=== PATIENT | female | born 1990 | race African-American/Black ===

== ENCOUNTER 2019-02-19 16:49 | Emergency (ER) | payer SELFPAY ==
[2019-02-19] MEDS ORDERED: KETOROLAC 30 MG/ML INJ ONE (18:17)
--- NOTE | 2019-02-19 18:45 | RAD REPORT ---
EXAM DESCRIPTION: CT - Stone Protocol - 02/19/2019 6:26 pm CLINICAL HISTORY: Abdominal pain. COMPARISON: 2016 TECHNIQUE: Computed axial tomography of the abdomen pelvis was obtained without oral or IV contrast. Lack of IV and oral contrast limits evaluation of solid organs, bowel, and vessels. Coronal reformat becky images were obtained and reviewed. All CT scans are performed using dose optimization technique as appropriate and may include automated exposure control or mA/KV adjustment according to patient size. FINDINGS: Staghorn calculi left kidney. A 21 millimeter calculus is present within left renal pelvis . Mild left hydronephrosis. A right renal calculus is not seen. A ureteral calculus is not visualized . No bladder calculus The liver, spleen, pancreas and adrenals appear grossly normal There is no evidence of diverticulitis. The appendix appears normal IMPRESSION: A 21 millimeter calculus within the left renal pelvis probably results in an intermitten t partial obstruction. Mild left hydronephrosis is seen
--- NOTE | 2019-02-19 18:54 | ER ---
Nurse's Notes [facility] Name: Melida Ravi Age: 28 yrs Sex: Female : 1990 Arrival Date: 02/19/2019 Time: 16:51 Bed 20 Private MD: Diagnosis: Calculus of kidney;Urinary tract infection, site not specified Presentation: 02/19 17:33 Presenting complaint: Patient states: the lower part of my back is hurting, it started tw2 2 days ago, i dont think i injured it but it hurts. Transition of care: patient was not received from another setting of care. Onset of symptoms was February 19, 2019. Risk Assessment: Do you want to hurt yourself or someone else? Patient reports no desire to harm self or others. Initial Sepsis Screen: Does the patient meet any 2 criteria? No. Patient's initial sepsis screen is negative. Does the patient have a suspected source of infection? No. Patient's initial sepsis screen is negative. Care prior to arrival: None. 17:33 Method Of Arrival: Ambulatory tw2 17:33 Acuity: FERNANDO 3 tw2 17:33 Presenting complaint: Patient states: i am really here to make sure it is not kidney tw2 stones or something with my kidneys. Triage Assessment: 17:35 General: Appears in no apparent distress. Behavior is calm, cooperative, appropriate tw2 for age. Pain: Complains of pain in lumbar area, left low back and right low back. 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 - Social history:: Smoking status: . - Ebola Screening: : Patient denies travel to an Ebola-affected area in the 21 days before illness onset. Screenin:10 Abuse screen: Denies threats or abuse. Nutritional screening: No deficits noted. em Tuberculosis screening: No symptoms or risk factors identified. Fall Risk None identified. Assessment: 18:10 General: Appears in no apparent distress. comfortable, Behavior is calm, cooperative, em Denies fever. Pain: Complains of pain in lumbar area Pain currently is 8 out of 10 on a pain scale. Neuro: Level of Consciousness is awake, alert, obeys commands, Oriented to person, place, time, situation, Appropriate for age. Cardiovascular: Capillary refill < 3 seconds Patient's skin is warm and dry. Respiratory: Airway is patent Respiratory effort is even, unlabored, Respiratory pattern is regular, symmetrical. : Denies burning with urination. Derm: Skin is intact, is healthy with good turgor, Skin is pink, warm \T\ dry. Musculoskeletal: Capillary refill < 3 seconds, Range of motion: intact in all extremities. 18:10 Reassessment: I agree with assessment completed by Adarsh Lara LVN. aa5 Vital Signs: 17:34 BP 126 / 67; Pulse 74; Resp 18; Temp 98.8(TE); Pulse Ox 97% on R/A; Weight 63.5 kg (R); tw2 Height 5 ft. 9 in. (175.26 cm); Pain 9/10; 19:09 BP 113 / 79; Pulse 58; Resp 18; Pulse Ox 99% on R/A; wh 17:34 Body Mass Index 20.67 (63.50 kg, 175.26 cm) tw2 ED Course: 16:51 Patient arrived in ED. as 17:34 Triage completed. tw2 17:36 Arm band placed on. tw2 18:01 Adarsh Lara LVN is Primary Nurse. em 18:01 Lilia Ramey FNP-C is [facility]. kb 18:01 Jevon Graff MD is Attending Physician. kb 18:10 Patient has correct armband on for positive identification. Placed in gown. Bed in low em position. Call light in reach. Adult w/ patient. 18:29 CT Stone Protocol In Process Unspecified. EDMS 19:07 No provider procedures requiring assistance completed. Patient did not have IV access wh during this emergency room visit. Administered Medications: 18:18 Drug: TORadol 30 mg Route: IM; Site: left deltoid; em 18:59 Follow up: Response: No adverse reaction; Pain is decreased wh 18:59 Drug: Augmentin 875 mg Route: PO; wh 19:08 Follow up: Response: No adverse reaction wh Outcome: 18:53 Discharge ordered by . kb 19:07 Discharged to home ambulatory. 19:07 Condition: stable 19:07 Discharge instructions given to patient, Instructed on discharge instructions, follow up and referral plans. medication usage, POC Demonstrated understanding of instructions, follow-up care, medications, POC Prescriptions given X 2. 19:08 Patient left the ED. Addendum: 02/21/2019 08:46 Addendum: Culture Results: Positive urine culture. No further action required. Bacteria i w sensitive to prescribed antibiotic. Signatures: Dispatcher [employer] EDMS Lilia Ramey, SPOT REMOVER-C SPOT REMOVER-CkAdarsh Varela, RN RN Sarah Concepcion as Luz Bellamy RN RN iw Janet Barber, YVON RN aa5 Ginette Santiago RN RN tw2 Luana Saxena Corrections: (The following items were deleted from the chart) 02/19 17:36 17:33 Acuity: FERNANDO 4 tw2 tw2
--- NOTE | 2019-02-19 18:55 | EDPHYS ---
Physician Documentation [facility] Name: Melida Ravi Age: 28 yrs Sex: Female : 1990 Arrival Date: 02/19/2019 Time: 16:51 Bed 20 Private MD: ED Physician Jevon Graff HPI: 02/19 18:47 This 28 yrs old Black Female presents to ER via Ambulatory with complaints of Low Back kb Pain. 18:47 The patient presents with pain that is acute, with no known mechanism of injury. The kb symptoms are located in the low back. The pain does not radiate. The problem was sustained from unknown cause. Onset: The symptoms/episode began/occurred 3 day(s) ago. Modifying factors: The patient symptoms are alleviated by nothing, the patient symptoms are aggravated by any movement. Associated signs and symptoms: The patient has no apparent associated signs or symptoms. Severity of symptoms: At their worst the symptoms were moderate, in the emergency department the symptoms are unchanged. The patient has experienced a previous episode. The patient has not recently seen a physician. Pt reports low back pain that started 3 days ago. Came in today because it feels similar to pain she had when she had a kidney stone. Denies urinary symptoms. 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 - Social history:: Smoking status: . - Ebola Screening: : Patient denies travel to an Ebola-affected area in the 21 days before illness onset. ROS: 18:47 Constitutional: Negative for fever, chills, and weight loss, Neck: Negative for injury, kb pain, and swelling, Cardiovascular: Negative for chest pain, palpitations, and edema, Respiratory: Negative for shortness of breath, cough, wheezing, and pleuritic chest pain, Abdomen/GI: Negative for abdominal pain, nausea, vomiting, diarrhea, and constipation, : Negative for injury, bleeding, discharge, and swelling, MS/Extremity: Negative for injury and deformity, Skin: Negative for injury, rash, and discoloration, Neuro: Negative for headache, weakness, numbness, tingling, and seizure. 18:47 Back: Positive for pain at rest, of the low back area. Exam: 18:47 Constitutional: This is a well developed, well nourished patient who is awake, alert, kb and in no acute distress. Head/Face: Normocephalic, atraumatic. ENT: Nares patent. No nasal discharge, no septal abnormalities noted. Tympanic membranes are normal and external auditory canals are clear. Oropharynx with no redness, swelling, or masses, exudates, or evidence of obstruction, uvula midline. Mucous membranes moist. Neck: Trachea midline, no thyromegaly or masses palpated, and no cervical lymphadenopathy. Supple, full range of motion without nuchal rigidity, or vertebral point tenderness. No Meningismus. Chest/axilla: Normal chest wall appearance and motion. Nontender with no deformity. No lesions are appreciated. Cardiovascular: Regular rate and rhythm with a normal S1 and S2. No gallops, murmurs, or rubs. Normal PMI, no JVD. No pulse deficits. Respiratory: Lungs have equal breath sounds bilaterally, clear to auscultation and percussion. No rales, rhonchi or wheezes noted. No increased work of breathing, no retractions or nasal flaring. Abdomen/GI: Soft, non-tender, with normal bowel sounds. No distension or tympany. No guarding or rebound. No evidence of tenderness throughout. Skin: Warm, dry with normal turgor. Normal color with no rashes, no lesions, and no evidence of cellulitis. MS/ Extremity: Pulses equal, no cyanosis. Neurovascular intact. Full, normal range of motion. Neuro: Awake and alert, GCS 15, oriented to person, place, time, and situation. Cranial nerves II-XII grossly intact. Motor strength 5/5 in all extremities. Sensory grossly intact. Cerebellar exam normal. Normal gait. 18:47 Back: pain, that is moderate, of the low back area. Vital Signs: 17:34 BP 126 / 67; Pulse 74; Resp 18; Temp 98.8(TE); Pulse Ox 97% on R/A; Weight 63.5 kg (R); tw2 Height 5 ft. 9 in. (175.26 cm); Pain 9/10; 19:09 BP 113 / 79; Pulse 58; Resp 18; Pulse Ox 99% on R/A; wh 17:34 Body Mass Index 20.67 (63.50 kg, 175.26 cm) tw2 MDM: 18:01 Patient medically screened. kb 18:47 Data reviewed: vital signs, nurses notes. Data interpreted: Pulse oximetry: on room air kb is 97 %. Interpretation: normal. 18:53 Counseling: I had a detailed discussion with the patient and/or guardian regarding: the kb historical points, exam findings, and any diagnostic results supporting the discharge/admit diagnosis, lab results, radiology results, the need for outpatient follow up, a urologist, to return to the emergency department if symptoms worsen or persist or if there are any questions or concerns that arise at home. 02/19 18:14 Order name: Urine Microscopic Only 02/19 18:14 Order name: Urine --Ancillary (enter results) 02/19 18:14 Order name: CT Stone Protocol; Complete Time: 18:52 kb 02/19 18:14 Order name: Urine Dipstick--Ancillary (enter results) 02/19 17:44 Order name: Urine Dipstick-Ancillary (obtain specimen); Complete Time: 18:18 kb Administered Medications: 18:18 Drug: TORadol 30 mg Route: IM; Site: left deltoid; em 18:59 Follow up: Response: No adverse reaction; Pain is decreased 18:59 Drug: Augmentin 875 mg Route: PO; wh 19:08 Follow up: Response: No adverse reaction Disposition: 02/20 07:05 Co-signature as Attending Physician, Jevon Graff MD I agree with the assessment and theresa plan of care. Disposition: 02/19/19 18:53 Discharged to Home. Impression: Calculus of kidney, Urinary tract infection, site not specified. - Condition is Stable. - Discharge Instructions: Kidney Stones, [id number], Urinary Tract Infection, Adult, [id number]. - Prescriptions for Augmentin 875- 125 mg Oral Tablet - take 1 tablet by ORAL route every 12 hours for 10 days; 20 tablet. Diclofenac Sodium 75 mg Oral Tablet, Delayed Release (E.C.) - take 1 tablet by ORAL route 2 times per day As needed; 30 tablet. - Medication Reconciliation Form, Thank You Letter, Antibiotic Education, Prescription Opioid Use form. - Follow up: Emergency Department; When: As needed; Reason: Worsening of condition. Follow up: Private Physician; When: 2 - 3 days; Reason: Recheck today's complaints, Continuance of care, Re-evaluation by your physician. Signatures: Dispatcher [employer] EDLilia Dupont, QUALIFICATIONS EXAMINER-C QUALIFICATIONS EXAMINER-Nakulb Jevon Graff MD MD cha Munoz, Edgar, RN RN Ginette Santiago RN RN [facility] Luana Saxena Corrections: (The following items were deleted from the chart) 02/19 19:08 18:53 02/19/2019 18:53 Discharged to Home. Impression: Calculus of kidney; Urinary wh tract infection, site not specified. Condition is Stable. Forms are Medication Reconciliation Form, Thank You Letter, Antibiotic Education, Prescription Opioid Use. Follow up: Emergency Department; When: As needed; Reason: Worsening of condition. Follow up: Private Physician; When: 2 - 3 days; Reason: Recheck today's complaints, Continuance of care, Re-evaluation by your physician. kb
[2019-02-19] MEDS ORDERED: AMOX/K CLAV 875 MG TAB ONE (19:00)
[2019-02-19 19:15] VITALS: TEMP 98.8
[2019-02-19 19:16] VITALS: BP 113/79; O2SAT 99
[2019-02-19 19:23] LABS: Urine Bacteria >50 /HPF (<20); Urine Culture Reflex Order REFLEXED; Urine Mucus 3+ /HPF (NONE SEEN); Urine RBC >50 /HPF (NONE SEEN)
[2019-02-19 19:23] LABS: Urine Blood 2+ (NEG); Urine Glucose NEGATIVE (NEG); Urine Protein 2+ (NEG); Urine Specific Gravity 1.025 (1.005-1.030)
== END 2019-02-19 19:08 | disposition home or self-care (01) ==
LOC: ER 16:49
DX: N39.0 Urinary tract infection, site not specified (principal); N20.0 Calculus of kidney
CPT/HCPCS: 74176; 76377; 81003; 81015; 81025; 87077; 87086; 87088; 87186; 96372; 99283

== ENCOUNTER 2020-12-15 11:00 | Emergency (ER) | payer SELFPAY ==
--- NOTE | 2020-12-15 11:42 | EDPHYS ---
Physician Documentation [facility] Name: Melida Ravi Age: 30 yrs Sex: Female : 1990 Arrival Date: 12/15/2020 Time: 11:02 Bed Waiting Private MD: GURMEET Physician Jevon Graff HPI: 12/15 11:47 This 30 yrs old Black Female presents to ER via Ambulatory with complaints of Rash. kb 11:47 The patient's rash thought to be caused by an unknown cause. The rash is located on the kb right clavicle and right trapezius and right lateral aspect of neck and right posterior aspect of neck. The rash can be described as erythematous. Onset: The symptoms/episode began/occurred 3 week(s) ago. Associated signs and symptoms: Pertinent positives: itching. Severity of symptoms: At their worst the symptoms were moderate in the emergency department the symptoms are unchanged. Treatment given at home: OTC lotion/cream. The patient has not experienced similar symptoms in the past. The patient has not recently seen a physician. Pt reports rash that started 3 weeks ago on right side of neck. States it looked like ringworm so she was using ringworm cream on it. States it was getting better, but she forgot to use it one day and the rash spread around neck, back and chest. Reports itching. . 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 - Social history:: Smoking status: Patient denies any tobacco usage or history of. ROS: 11:44 Constitutional: Negative for fever, chills, and weight loss. kb 11:44 Skin: Positive for rash, of the right trapezius, right clavicle, right posterior aspect of neck and right lateral aspect of neck. 11:46 All other systems are negative. kb Exam: 11:47 Constitutional: This is a well developed, well nourished patient who is awake, alert, kb and in no acute distress. Head/Face: Normocephalic, atraumatic. ENT: Moist Mucous membranes Respiratory: Respirations even and unlabored. No increased work of breathing, no retractions or nasal flaring. MS/ Extremity: Pulses equal, no cyanosis. Neurovascular intact. Full, normal range of motion. Neuro: Awake and alert, GCS 15, oriented to person, place, time, and situation. Moves all extremities. Normal gait. Psych: Awake, alert, with orientation to person, place and time. Behavior, mood, and affect are within normal limits. 11:47 Skin: consistent with contact dermatitis, ringworm, on the right clavicle and right trapezius and right lateral aspect of neck and right posterior aspect of neck. Vital Signs: 11:39 BP 103 / 77; Pulse 70; Resp 16; Temp 98.4; Pulse Ox 100% ; Weight 71.21 kg; Height 5 vg1 ft. 9 in. (175.26 cm); Pain 0/10; 11:39 Body Mass Index 23.18 (71.21 kg, 175.26 cm) vg1 MDM: 11:42 Patient medically screened. kb 11:43 Data reviewed: vital signs, nurses notes. Data interpreted: Pulse oximetry: on room air kb is 100 %. Interpretation: normal. Counseling: I had a detailed discussion with the patient and/or guardian regarding: the historical points, exam findings, and any diagnostic results supporting the discharge/admit diagnosis, the need for outpatient follow up, a lead ruby on rails developer, to return to the emergency department if symptoms worsen or persist or if there are any questions or concerns that arise at home. 11:50 ED course: Some areas of rash appear to be ringworm, other areas resemble contact kb dermatitis. Pt educated to continue ringworm otc treatment and use steroids as prescribed.. Administered Medications: No medications were administered Disposition: 12/16 11:34 Co-signature as Attending Physician, Jevon Graff MD I agree with the assessment and thersea plan of care. Disposition Summary: 12/15/20 11:42 Discharge Ordered Location: Home kb Condition: Stable kb Diagnosis - Rash and other nonspecific skin eruption kb Followup: kb - With: Emergency Department - When: As needed - Reason: Worsening of condition Followup: kb - With: Private Physician - When: 2 - 3 days - Reason: Recheck today's complaints, Continuance of care, Re-evaluation by your physician Discharge Instructions: - Discharge Summary Sheet kb - Body Ringworm kb - Contact Dermatitis, [id number] kb Forms: - Medication Reconciliation Form kb - Thank You Letter kb - Antibiotic Education kb - Prescription Opioid Use kb Prescriptions: - Prednisone 20 mg Oral Tablet - take 1 tablet by ORAL route once daily for 5 days; 5 tablet; Refills: 0, kb Product Selection Permitted Signatures: Lilia Ramey, HANNAHC FELECIA-Jevon Aldana MD MD cha Garcia, Victoria RN RN vg1 Corrections: (The following items were deleted from the chart) 12/15 11:43 11:43 PSHx: None; vg1 vg1
--- NOTE | 2020-12-15 11:48 | ER ---
Nurse's Notes [facility] Name: Melida Ravi Age: 30 yrs Sex: Female : 1990 Arrival Date: 12/15/2020 Time: 11:02 Bed Waiting Private MD: Diagnosis: Rash and other nonspecific skin eruption Presentation: 12/15 11:39 Chief complaint: Patient states: Noticed red spots on back of neck about 2-3 weeks ago. vg1 Was applying a topical ointment and then noticed that it was spreading to back and chest. States its itchy. Denies pain, changing soaps/lotions, cough, sore throat. Coronavirus screen: Vaccine status: Patient reports being unvaccinated. Client denies travel out of the [place] in the last 14 days. Ebola Screen: Patient negative for fever greater than or equal to 101.5 degrees Fahrenheit, and additional compatible Ebola Virus Disease symptoms. Initial Sepsis Screen: Does the patient meet any 2 criteria? No. Patient's initial sepsis screen is negative. Does the patient have a suspected source of infection? No. Patient's initial sepsis screen is negative. Risk Assessment: Do you want to hurt yourself or someone else? Patient reports no desire to harm self or others. Onset of symptoms was November 24, 2020. 11:39 Method Of Arrival: Ambulatory [facility] 11:39 Acuity: FERNANDO 4 vg1 Triage Assessment: 11:43 General: Appears in no apparent distress. uncomfortable, Behavior is calm, cooperative. vg1 Pain: Denies pain. Derm: Reports itching. 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 - Social history:: Smoking status: Patient denies any tobacco usage or history of. Screenin:45 Abuse screen: Denies threats or abuse. Nutritional screening: No deficits noted. vg1 Tuberculosis screening: No symptoms or risk factors identified. Fall Risk None identified. Vital Signs: 11:39 BP 103 / 77; Pulse 70; Resp 16; Temp 98.4; Pulse Ox 100% ; Weight 71.21 kg; Height 5 vg1 ft. 9 in. (175.26 cm); Pain 0/10; 11:39 Body Mass Index 23.18 (71.21 kg, 175.26 cm) vg1 ED Course: 11:02 Patient arrived in ED. ds1 11:29 Lilia Ramey FNP-C is [facility]. kb 11:29 Jevon Graff MD is Attending Physician. kb 11:43 Triage completed. vg1 11:43 Arm band placed on. vg1 11:45 Patient has correct armband on for positive identification. vg1 11:45 No provider procedures requiring assistance completed. Patient did not have IV access vg1 during this emergency room visit. Administered Medications: No medications were administered Outcome: 11:42 Discharge ordered by . kb 11:45 Discharged to home ambulatory. vg1 11:45 Condition: stable 11:45 Discharge instructions given to patient, Instructed on discharge instructions, follow up and referral plans. medication usage, Demonstrated understanding of instructions, follow-up care, medications, Prescriptions given X 1. 11:48 Patient left the ED. vg1 Signatures: Lilia Ramey FNP-C FNP-Ckb Sanford, Demi ds1 Liz Ardon, RN RN vg1 Corrections: (The following items were deleted from the chart) 11:43 11:43 PSHx: None; vg1 vg1
[2020-12-15 12:10] VITALS: BP 103/77; TEMP 98.4; O2SAT 100
== END 2020-12-15 11:48 | disposition home or self-care (01) ==
LOC: ER 11:00
DX: R21 Rash and other nonspecific skin eruption (principal)
CPT/HCPCS: 99282

== ENCOUNTER 2021-03-14 17:39 | Emergency (ER) | payer SELFPAY ==
[2021-03-14] MEDS ORDERED: MORPHINE 4 MG/ML SYR ONE (20:25)
[2021-03-14] MEDS ORDERED: ONDANSETRON 4 MG/2 ML VIAL ONE (20:26)
[2021-03-14 20:47] LABS: Urine Appearance TURBID (Clear); Urine Bilirubin NEGATIVE (Negative); Urine Blood 3+ (Negative); Urine Color YELLOW (Yellow); Urine Glucose NEGATIVE (Negative); Urine Protein 2+ (Negative); Urine Specific Gravity 1.015 (1.005-1.030); Urine pH 6.5 (5.0-7.0)
[2021-03-14 20:50] LABS: Urine Microscopic Reflex ORDER UMIC
[2021-03-14 20:54] LABS: Absolute Lymphocytes (CBC) 1.5 K/uL (0.7-4.9); Hematocrit 38.1 % (36.0-45.0); Lymphocytes % 20.5 % (15.3-44.8); MPV 7.4 fL (7.6-11.3); RBC Red Blood Cell Count 4.35 M/uL (3.86-4.86)
[2021-03-14 20:58] LABS: Albumin 3.4 g/dL (3.4-5.0); Potassium 3.7 mmol/L (3.5-5.1)
[2021-03-14 20:59] LABS: Urine Bacteria LOADED /HPF (<20); Urine RBC TNTC /HPF (NONE SEEN)
[2021-03-14 21:00] LABS: Urine Mucus 2+ /HPF (NONE SEEN)
[2021-03-14 21:03] LABS: Bilirubin Direct 0.1 mg/dL (0-0.2); Bilirubin Total 0.4 mg/dL (0.2-1.0); Protein, Total 6.9 g/dL (6.4-8.2)
--- NOTE | 2021-03-14 21:44 | RAD REPORT ---
EXAM DESCRIPTION: CT - Abdomen Pelvis W Contrast - 03/14/2021 9:25 pm CLINICAL HISTORY: Abdominal pain COMPARISON: 2013 TECHNIQUE: Computed axial tomography of the abdomen pelvis was obtained. 100 cc Isovue-300 was admin istered intravenously. Oral contrast was not requested which limits evaluation of bowel. All CT scans are performed using dose optimization technique as appropriate and may include automated exposure control or mA/KV adjustment according to patient size. FINDINGS: The left kidney is enlarged. 3.7 centimeter calculus left renal pelvis. The calices are ma rkedly dilated some containing calculi. Delayed concentration of contrast within the left kidney. Str anding within the peripelvic and left ureteral fat. This is compatible with xanthogranulomatous pyelo nephritis. Liver, spleen, pancreas, adrenals and right kidney unremarkable. There is no evidence of diverticulitis. Normal appendix IMPRESSION: Left xanthogranulomatous pyelonephritis
--- NOTE | 2021-03-14 22:43 | EDPHYS ---
Physician Documentation [facility] Name: Melida Ravi Age: 30 yrs Sex: Female : 1990 Arrival Date: 03/14/2021 Time: 17:41 Bed 11 Private MD: ED Physician Nick Posadas HPI: 03/14 20:15 This 30 yrs old Black Female presents to ER via Ambulatory with complaints of Back Pain.jmm 20:15 The patient presents with pain that is acute. Onset: The symptoms/episode jmm began/occurred gradually, 1 week(s) ago. The pain does not radiate. Associated signs and symptoms: Pertinent negatives: abdominal pain, dysuria, fever, incontinence, nausea, numbness, tingling, urinary retention, vomiting. Modifying factors: The patient symptoms are alleviated by nothing, the patient symptoms are aggravated by any movement. The patient has experienced similar episodes in the past, a few times. 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 - Social history:: Smoking status: Patient denies any tobacco usage or history of. Patient/guardian denies using alcohol. ROS: 20:15 Constitutional: Negative for fever, chills, and weight loss, Cardiovascular: Negative jmm for chest pain, palpitations, and edema, Respiratory: Negative for shortness of breath, cough, wheezing, and pleuritic chest pain. 20:15 Abdomen/GI: Positive for 20:15 Back: Positive for pain with movement. 20:15 All other systems are negative. Exam: 20:15 Constitutional: This is a well developed, well nourished patient who is awake, alert, jmm and in no acute distress. Head/Face: atraumatic. Eyes: EOMI, no conjunctival erythema appreciated ENT: Moist Mucus Membranes Neck: Trachea midline, Supple Chest/axilla: Normal chest wall appearance and motion. Cardiovascular: Regular rate and rhythm. No edema appreciated Respiratory: Normal respirations, no respiratory distress appreciated Abdomen/GI: Non distended, soft 20:15 Skin: General appearance color normal MS/ Extremity: Moves all extremities, no obvious deformities appreciated, no edema noted to the lower extremities Neuro: Awake and alert Psych: Behavior is normal, Mood is normal, Patient is cooperative and pleasant 20:15 Back: CVA tenderness, that is moderate, is noted bilaterally. Vital Signs: 18:16 BP 106 / 82; Pulse 95; Resp 16; Temp 98.4; Pulse Ox 99% ; Height 5 ft. 9 in. (175.26 vg1 cm); Pain 10/10; 20:42 BP 115 / 75; Pulse 73; Resp 16 S; Temp 96.7(O); Pulse Ox 99% on R/A; bb 03/15 00:51 BP 104 / 67; Pulse 67; Resp 17; Pulse Ox 98% on R/A; ll3 MDM: 03/14 20:14 Patient medically screened. [facility] 22:40 Data reviewed: vital signs, nurses notes. [facility] 03/15 00:28 Counseling: I had a detailed discussion with the patient and/or guardian regarding: the [facility] historical points, exam findings, and any diagnostic results supporting the discharge/admit diagnosis, lab results, radiology results, the need to transfer to another facility. ED course: I discussed the patient with Dr. Strong whom accepted the patient to [facility]. 00:51 ED course: Patient refused transfer to [facility].. [facility] 03/14 19:58 Order name: UA; Complete Time: 21:39 [facility] 03/14 20:15 Order name: Basic Metabolic Panel; Complete Time: 21:39 [facility] 03/14 20:15 Order name: CBC with Diff; Complete Time: 21:39 [facility] 03/14 20:15 Order name: Hepatic Function; Complete Time: 21:39 [facility] 03/14 20:15 Order name: Lipase; Complete Time: 21:39 [facility] 03/14 20:15 Order name: CT Abd/Pelvis - IV Contrast Only; Complete Time: 21:52 [facility] 03/14 20:39 Order name: Urine --Ancillary (enter results); Complete Time: 20:47 [facility] 03/14 20:51 Order name: Urine Microscopic Only; Complete Time: 21:39 [facility] 03/14 21:00 Order name: Urine Culture [facility] 03/14 23:18 Order name: SARS-COV-2 RT PCR (Document "Date of Onset" if Symptomatic); Complete Time: [facility] 00:57 03/14 20:15 Order name: Urine Test (obtain specimen); Complete Time: 20:40 [facility] 03/14 20:15 Order name: IV Saline Lock; Complete Time: 20:41 [facility] 03/14 20:15 Order name: Labs collected and sent; Complete Time: 20:41 [facility] Administered Medications: 03/14 20:32 Drug: Zofran (Ondansetron) 4 mg Route: IVP; Site: right antecubital; bb 21:23 Follow up: Response: No adverse reaction bb 20:34 Drug: morphine 4 mg Route: IVP; Site: right antecubital; bb 21:23 Follow up: Response: Pain is decreased; RASS: Alert and Calm (0) 22:59 Drug: Rocephin (cefTRIAXone) 2 grams Route: IV; Rate: calculated rate; Site: right bb antecubital; 23:30 Follow up: IV Status: Completed infusion; IV Intake: 100ml 03/15 00:51 Drug: morphine 4 mg Route: IVP; Site: right antecubital; ll3 01:00 Follow up: Response: No adverse reaction ll3 Disposition: 03:40 Co-signature as Attending Physician, Nick Posadas MD. [email or web address] Disposition Summary: 03/14/21 22:43 Transfer Ordered Reason: Higher level of care [facility] Condition: Stable [facility] Problem: new [facility] Symptoms: are unchanged [facility] Transfer Location: Other Acute Care Facility(03/15/21 00:29) [facility] Accepting Physician: Dr. Strong(03/15/21 01:02) bb Diagnosis - Pyelonephritis [facility] Forms: - Medication Reconciliation Form [facility] - SBAR form [facility] Signatures: Dispatcher [employer] EDMS Jaren Pretty PA PA jmm Sarah Villeda RN RN bb Liz Ardon RN RN 1 Nick Posadas MD MD 7 [place] RN RN ll3 Corrections: (The following items were deleted from the chart) 03/14 20:42 19:59 UA MICROSCOPIC+U.LAB.BRZ ordered. EDMS EDMS 03/15 00:29 03/14 22:43 [facility] Urology [facility] 03/15 00:29 03/14 22:43 [facility] 03/15 01:02 00:29 Dr. Ligia orozco bb
--- NOTE | 2021-03-14 22:43 | ER ---
Nurse's Notes [facility] Name: Melida Ravi Age: 30 yrs Sex: Female : 1990 Arrival Date: 03/14/2021 Time: 17:41 Bed 11 Private MD: Diagnosis: Pyelonephritis Presentation: 03/14 18:14 Chief complaint: Patient states: lower back pain x 2 days; denies any injury or any vg1 burning upon urination, V/D. States nausea and lightheaded. 18:16 Coronavirus screen: Vaccine status: Patient reports being unvaccinated. Client denies vg1 travel out of the [place] in the last 14 days. Ebola Screen: Patient negative for fever greater than or equal to 101.5 degrees Fahrenheit, and additional compatible Ebola Virus Disease symptoms. Initial Sepsis Screen: Does the patient meet any 2 criteria? No. Patient's initial sepsis screen is negative. Does the patient have a suspected source of infection? No. Patient's initial sepsis screen is negative. Risk Assessment: Do you want to hurt yourself or someone else? Patient reports no desire to harm self or others. Onset of symptoms was March 12, 2021. 18:16 Method Of Arrival: Ambulatory vg1 18:16 Acuity: FERNANDO 4 vg1 Triage Assessment: 18:17 General: Appears uncomfortable, Behavior is calm, cooperative. Pain: Complains of pain vg1 in lumbar area, left low back and right low back Pain currently is 10 out of 10 on a pain scale. Musculoskeletal: Circulation, motion, and sensation intact. 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 - Social history:: Smoking status: Patient denies any tobacco usage or history of. Patient/guardian denies using alcohol. Screenin:40 Abuse screen: Denies threats or abuse. Nutritional screening: No deficits noted. bb Tuberculosis screening: No symptoms or risk factors identified. Fall Risk None identified. Assessment: 20:40 General: Appears in no apparent distress. uncomfortable, Behavior is calm, cooperative. bb Pain: Complains of pain in lumbar area. Neuro: Level of Consciousness is awake, alert, obeys commands, Oriented to person, place, time, situation. Cardiovascular: Capillary refill < 3 seconds Patient's skin is warm and dry. Respiratory: Airway is patent Respiratory effort is even, unlabored. GI: No signs and/or symptoms were reported involving the gastrointestinal system. Derm: Skin is pink, warm \T\ dry. Musculoskeletal: Circulation, motion, and sensation intact. 21:23 Reassessment: Patient is alert, oriented x 3, equal unlabored respirations, skin bb warm/dry/pink. Patient states feeling better. Patient states symptoms have improved. 03/15 00:49 Reassessment: Patient is alert, oriented x 3, equal unlabored respirations, skin bb warm/dry/pink. report called to Graham SANZ at [facility] emergency department. 01:00 Reassessment: [facility] at bedside for transfer of pt to [facility], pt is A\T\O x 4, bb resp unlabored, IV site intact, no erythema or edema noted. Vital Signs: 03/14 18:16 BP 106 / 82; Pulse 95; Resp 16; Temp 98.4; Pulse Ox 99% ; Height 5 ft. 9 in. (175.26 vg1 cm); Pain 10/10; 20:42 BP 115 / 75; Pulse 73; Resp 16 S; Temp 96.7(O); Pulse Ox 99% on R/A; bb 03/15 00:51 BP 104 / 67; Pulse 67; Resp 17; Pulse Ox 98% on R/A; ll3 ED Course: 03/14 17:41 Patient arrived in ED. rg4 18:17 Triage completed. vg1 18:17 Arm band placed on. vg1 20:06 Jaren Pretty PA is PHCP. jm 20:06 Nick Posadas MD is Attending Physician. jmm 20:30 Initial lab(s) drawn, by me, sent to lab. Urine collected: clean catch specimen, clear. bb Inserted saline lock: 20 gauge in right antecubital area, using aseptic technique. Blood collected. 20:39 Sarah Villeda RN is Primary Nurse. bb 20:40 Patient has correct armband on for positive identification. Call light in reach. bb 21:25 CT Abd/Pelvis - IV Contrast Only In Process Unspecified. EDMS 03/15 01:01 No provider procedures requiring assistance completed. Patient transferred, IV remains bb in place. Administered Medications: 03/14 20:32 Drug: Zofran (Ondansetron) 4 mg Route: IVP; Site: right antecubital; bb 21:23 Follow up: Response: No adverse reaction bb 20:34 Drug: morphine 4 mg Route: IVP; Site: right antecubital; bb 21:23 Follow up: Response: Pain is decreased; RASS: Alert and Calm (0) bb 22:59 Drug: Rocephin (cefTRIAXone) 2 grams Route: IV; Rate: calculated rate; Site: right bb antecubital; 23:30 Follow up: IV Status: Completed infusion; IV Intake: 100ml bb 03/15 00:51 Drug: morphine 4 mg Route: IVP; Site: right antecubital; ll3 01:00 Follow up: Response: No adverse reaction ll3 Intake: 03/14 23:30 IV: 100ml; Total: 100ml. bb Outcome: 22:43 ER care complete, transfer ordered by MD. orozco 03/15 01:02 Transferred by ground EMS Transfer form completed. X-rays sent w/ patient. bb Condition: stable Instructed on the need for transfer. 01:02 Patient left the ED. bb Signatures: Dispatcher [employer] EDMS Jaren Pretty PA PA Sarah Shah RN RN Nury Laureano rg4 Liz Ardon RN RN vg1 [place] RN RN ll3 Corrections: (The following items were deleted from the chart) 03/14 18:17 18:14 Chief complaint: Patient states: lower back pain x 2 days; denies any injury or vg1 any burning upon urination. vg1
[2021-03-14] MEDS ORDERED: CEFTRIAXONE 1000 MG/VIAL ONE (22:47)
[2021-03-14] MEDS ORDERED: NA CHLORIDE 0.9% 100 ML ONE (22:47)
[2021-03-15] MEDS ORDERED: MORPHINE 4 MG/ML SYR ONE (00:43)
[2021-03-15 01:22] VITALS: TEMP 96.7
[2021-03-15 01:23] VITALS: BP 104/67; O2SAT 98
== END 2021-03-15 01:02 ==
LOC: ER 17:39
DX: N12 Tubulo-interstitial nephritis, not specified as acute or chronic (principal)
CPT/HCPCS: 36415; 74177; 80048; 80076; 81003; 81015; 81025; 83690; 85025; 87077; 87086; 87088; 87186; 96365; 96375; 99285; J2405; Q9967; U0003

== ENCOUNTER 2021-06-06 13:49 | Emergency (ER) | payer SELFPAY ==
--- OUTSIDE RECORDS SUMMARY | 2021-06-06 13:52 | XMS REPORT | Continuity of Care Document ---
:1990 Author Organization [facility] t Address [address] [place] [address] Care Team Providers Name Role Phone Angel Luis, Clint Attending Clinician Unavailable Angel Luis, X Admitting Clinician Unavailable Payers Payer Name Policy Type Policy Number Effective Date Expiration Date S ource Problems This patient has no known problems. Allergies, Adverse Reactions, Alerts Allergy Allergy Status Severity Reaction(s) Onset Inactive Treating Comm ents Source Name Type Date Date Clinician No Known DA Active U [facility] Allergie 03-15 [facility] 00:00: [facility] 00 are [place] Medications This patient has no known medications. Procedures This patient has no known procedures. Encounters Start End Encounter Admission Attending Care Care Encounter Source Date/Time Date/Time Type Type Clinicians Facility Department ID 2021-03-15 2021-03-17 Inpatient EM Camilo Hein [facility] [id number] [facility] 03:59:00 13:31:00 [facility] are [place] 2021-03-15 2021-03-17 Inpatient EM Camilo Hein [facility] [id number] [facility] 03:59:00 13:31:00 32 [facility] are [place] Results Test Description Test Time Test Comments Results Result Comments Source CBC W/AUTO DIFF 2021-03-17 11:50:00 Test Item Value Reference Range Interpretation Comme nts WHITE BLOOD CELL (test code = WBC) 5.2 10 3/uL 4.5-11.0 N RED BLOOD CELL (test code = RBC) 4.32 10 6/uL 3.50-5.50 N HEMOGLOBIN (test code = HGB) 12.2 g/dL 12.0-16.0 N HEMATOCRIT (test code = HCT) 39.0 % 37.0-55.0 N MEAN CELL VOLUME (test code = MCV) 90 fL 81-102 N MEAN CELL HGB (test code = MCH) 28.2 pg 26.0-34.0 N MEAN CELL HGB CONCENTRATION (test code = MCHC) 31.3 g/dL 31.0-37 .0 N RED CELL DISTRIBUTION WIDTH (test code = RDW) 12.5 % 11.6-14. 4 N PLATELET COUNT (test code = PLT) 228 10 3/uL 150-400 N MEAN PLATELET VOLUME (test code = MPV) 9.3 fL 9.0-12.6 N NEUTROPHIL % (test code = NT%) 60.0 % 33.0-76.0 N IMMATURE GRANULOCYTE % (test code = IG%) 0.2 % 0.0-1.0 N LYMPHOCYTE % (test code = LY%) 28.4 % 14.0-56.4 N MONOCYTE % (test code = MO%) 6.8 % 0.0-12.9 N EOSINOPHIL % (test code = EO%) 4.4 % 0.0-7.0 N BASOPHIL % (test code = BA%) 0.2 % 0-2.0 N NUCLEATED RBC % (test code = NRBC%) 0.0 % 0-0.2 N NEUTROPHIL # (test code = NT#) 3.11 10 3/uL 1.5-7.0 N IMMATURE GRANULOCYTE # (test code = IG#) 0.010 x10 3/uL 0.000-0.100 N LYMPHOCYTE # (test code = LY#) 1.47 10 3/uL 1.50-4.00 L MONOCYTE # (test code = MO#) 0.35 10 3/uL 0.20-0.80 N EOSINOPHIL # (test code = EO#) 0.23 10 3/uL 0.0-0.5 N BASOPHIL # (test code = BA#) 0.01 10 3/uL 0.0-0.1 N SED [id number] 11:50:00 Test Item Value Reference Range Interpretation Comments SED RATE (test code = SEDW) 17 mm/hr 0-20 N BASIC METABOLIC [id number] 10:52:00 Test Item Value Reference Range Interpretation Comments SODIUM (test code 140 mmol/L 135-145 N = NA) POTASSIUM (test 3.9 mmol/L 3.5-5.1 N code = K) CHLORIDE (test 107 mmol/L 98-107 N code = CL) CARBON DIOXIDE 29 mmol/L 21-32 N (test code = CO2) ANION GAP (test 7.9 2.0-16.0 N code = GAP) GLUCOSE (test code 92 mg/dL 65-99 N = GLU) BLOOD UREA 6 mg/dL 4-23 N NITROGEN (test code = BUN) GLOMERULAR >=60 max >60 The estimated FILTRATION RATE estimate ml/min glomerula r (test code = GFR) filtration rate is computed usingpatient ra ce, age (>18), sex, and serum creatinin e. If anyof the neede d data elements a re missing the Laboratory desiree ot compute an estimation of t he glomerular filtration rate . CREATININE (test 0.7 mg/dL 0.6-1.5 N code = CREAT) BUN/CREATININE 8.6 12.0-20.0 L RATIO (test code = BUN/CREA) CALCIUM (test code 8.4 mg/dL 8.5-10.1 L = CA) C REACTIVE [id number] 10:52:00 Test Item Value Reference Range Interpretation Comments C REACTIVE PROTEIN (test code = 0.50 mg/dL 0.00-0.33 H CRP) URINALYSIS [id number] 05:31:00 Test Item Value Reference Range Interpretation Comments UA COLOR (test code = YELLOW YELLOW COLU) UA APPEARANCE (test code CLOUDY CLEAR A = APPU) UA GLUCOSE DIPSTICK NEGATIVE NEGATIVE (test code = DGLUU) UA BILIRUBIN DIPSTICK NEGATIVE NEGATIVE (test code = BILU) UA KETONE DIPSTICK (test NEGATIVE NEGATIVE code = KETU) UA SPECIFIC GRAVITY 1.009 1.005-1.025 N (test code = SGU) UA BLOOD DIPSTICK (test 2+ NEGATIVE A code = KATELYN) UA PH DIPSTICK (test 6.0 5.0-8.0 code = JIMBO) UA PROTEIN DIPSTICK NEGATIVE NEGATIVE (test code = PROU) UA UROBILINOGEN DIPSTICK NEGATIVE EU/dL 0.1-0.2 (test code = URO) UA NITRITE DIPSTICK NEGATIVE NEGATIVE (test code = JEFF) UA LEUKOCYTE ESTERASE 3+ NEGATIVE A DIPSTICK (test code = LEUU) UA MICROSCOPIC NEEDED? YES NO A (test code = UAMICRO) UA WBC (test code = TOO NUMEROUS TO CNT 0-3 A WBCU) /hpf UA RBC (test code = 11-20 /hpf 0-3 A RBCU) UA BACTERIA (test code = RARE /HPF NEGATIVE BACU) UA SQUAMOUS CELLS (test RARE /HPF FEW code = SQU) UA MUCUS (test code = OCCASIONAL /lpf MUCU) BASIC METABOLIC [id number] 08:18:00 Test Item Value Reference Range Interpretation Comments SODIUM (test code 141 mmol/L 135-145 N = NA) POTASSIUM (test 4.1 mmol/L 3.5-5.1 N code = K) CHLORIDE (test 110 mmol/L 98-107 H code = CL) CARBON DIOXIDE 31 mmol/L 21-32 N (test code = CO2) ANION GAP (test 4.1 2.0-16.0 code = GAP) GLUCOSE (test code 84 mg/dL 65-99 N = GLU) BLOOD UREA 7 mg/dL 4-23 N NITROGEN (test code = BUN) GLOMERULAR >=60 max >60 The estimated FILTRATION RATE estimate ml/min glomerula r (test code = GFR) filtration rate is computed usingpatient ra ce, age (>18), sex, and serum creatinin e. If anyof the neede d data elements a re missing the Laboratory desiree ot compute an estimation of t he glomerular filtration rate . CREATININE (test 0.7 mg/dL 0.6-1.5 N code = CREAT) BUN/CREATININE 10.0 12.0-20.0 L RATIO (test code = BUN/CREA) CALCIUM (test code 8.4 mg/dL 8.5-10.1 L = CA) CBC W/AUTO [id number] 08:02:00 Test Item Value Reference Range Interpretation Comments WHITE BLOOD CELL (test code = 5.3 10 3/uL 4.5-11.0 N WBC) RED BLOOD CELL (test code = 4.02 10 6/uL 3.50-5.50 N RBC) HEMOGLOBIN (test code = HGB) 11.3 g/dL 12.0-16.0 L HEMATOCRIT (test code = HCT) 36.7 % 37.0-55.0 L MEAN CELL VOLUME (test code = 91 fL 81-102 N MCV) MEAN CELL HGB (test code = 28.1 pg 26.0-34.0 N MCH) MEAN CELL HGB CONCENTRATION 30.8 g/dL 31.0-37.0 L (test code = MCHC) RED CELL DISTRIBUTION WIDTH 12.8 % 11.6-14.4 N (test code = RDW) PLATELET COUNT (test code = 212 10 3/uL 150-400 N PLT) MEAN PLATELET VOLUME (test 9.6 fL 9.0-12.6 N code = MPV) NEUTROPHIL % (test code = NT%) 55.9 % 33.0-76.0 N IMMATURE GRANULOCYTE % (test 0.2 % 0.0-1.0 N code = IG%) LYMPHOCYTE % (test code = LY%) 28.7 % 14.0-56.4 N MONOCYTE % (test code = MO%) 9.0 % 0.0-12.9 N EOSINOPHIL % (test code = EO%) 6.0 % 0.0-7.0 N BASOPHIL % (test code = BA%) 0.2 % 0-2.0 N NUCLEATED RBC % (test code = 0.0 % 0-0.2 N NRBC%) NEUTROPHIL # (test code = NT#) 2.99 10 3/uL 1.5-7.0 N IMMATURE GRANULOCYTE # (test 0.010 x10 3/uL 0.000-0.100 N code = IG#) LYMPHOCYTE # (test code = LY#) 1.53 10 3/uL 1.50-4.00 N MONOCYTE # (test code = MO#) 0.48 10 3/uL 0.20-0.80 N EOSINOPHIL # (test code = EO#) 0.32 10 3/uL 0.0-0.5 N BASOPHIL # (test code = BA#) 0.01 10 3/uL 0.0-0.1 N LIPID PROFILE (CORONARY RISK)2021-03-15 11:19:00 Test Item Value Reference Range Interpretation Comments TRIGLYCERIDES (test code = TRIG) 70 mg/dL 0-149 N CHOLESTEROL (test code = CHOL) 128 mg/dL 0-200 N CHOLESTEROL/HDL RATIO (test code = 3 1-6 N CHOLHDL) HDL CHOLESTEROL (test code = HDL) 38 mg/dL 40-60 L LIPOPROTEIN LDL (test code = LDLC) 76 mg/dL 0-100 N COMPREHENSIVE METABOLIC [id number] 11:19:00 Test Item Value Reference Range Interpretation Comments SODIUM (test code 142 mmol/L 135-145 N = NA) POTASSIUM (test 3.9 mmol/L 3.5-5.1 N code = K) CHLORIDE (test 108 mmol/L 98-107 H code = CL) CARBON DIOXIDE 28 mmol/L 21-32 N (test code = CO2) ANION GAP (test 9.9 2.0-16.0 N code = GAP) GLUCOSE (test 88 mg/dL 65-99 N code = GLU) BLOOD UREA 9 mg/dL 4-23 N NITROGEN (test code = BUN) GLOMERULAR >=60 max >60 The estimated g lomerular FILTRATION RATE estimate filtration r ate is (test code = GFR) ml/min computed u singpatient race, age (>18) , sex, and serum creat inine. If anyof the neede d data elements are mi ssing the Laboratory desiree ot compute an marina mation of the glomerular filtration rate . CREATININE (test 0.7 mg/dL 0.6-1.5 N code = CREAT) BUN/CREATININE 12.9 12.0-20.0 N RATIO (test code = BUN/CREA) TOTAL PROTEIN 6.5 g/dL 6.4-8.2 N (test code = PROT) ALBUMIN (test 3.1 g/dL 3.4-5.0 L code = ALB) CALCIUM (test 8.3 mg/dL 8.5-10.1 L code = CA) BILIRUBIN TOTAL 0.3 mg/dL 0.2-1.2 N Use of this assay is not (test code = recommended for patients BILT) undergoingtreat ment with Eltrombopag due to the potential for falselyelevated results. SGOT/AST (test 5 U/L 15-37 L code = AST) SGPT/ALT (test 12 U/L 6-50 N code = ALT) ALKALINE 66 U/L 45-117 N PHOSPHATASE (test code = ALKP) CBC W/AUTO [id number] 10:59:00 Test Item Value Reference Range Interpretation Comments WHITE BLOOD CELL (test code = 6.7 10 3/uL 4.5-11.0 N WBC) RED BLOOD CELL (test code = 4.17 10 6/uL 3.50-5.50 N RBC) HEMOGLOBIN (test code = HGB) 11.8 g/dL 12.0-16.0 L HEMATOCRIT (test code = HCT) 37.9 % 37.0-55.0 N MEAN CELL VOLUME (test code = 91 fL 81-102 N MCV) MEAN CELL HGB (test code = 28.3 pg 26.0-34.0 N MCH) MEAN CELL HGB CONCENTRATION 31.1 g/dL 31.0-37.0 N (test code = MCHC) RED CELL DISTRIBUTION WIDTH 12.9 % 11.6-14.4 N (test code = RDW) PLATELET COUNT (test code = 222 10 3/uL 150-400 N PLT) MEAN PLATELET VOLUME (test 9.3 fL 9.0-12.6 N code = MPV) NEUTROPHIL % (test code = NT%) 67.8 % 33.0-76.0 N IMMATURE GRANULOCYTE % (test 0.1 % 0.0-1.0 N code = IG%) LYMPHOCYTE % (test code = LY%) 18.9 % 14.0-56.4 N MONOCYTE % (test code = MO%) 9.4 % 0.0-12.9 N EOSINOPHIL % (test code = EO%) 3.7 % 0.0-7.0 N BASOPHIL % (test code = BA%) 0.1 % 0-2.0 N NUCLEATED RBC % (test code = 0.0 % 0-0.2 N NRBC%) NEUTROPHIL # (test code = NT#) 4.52 10 3/uL 1.5-7.0 N IMMATURE GRANULOCYTE # (test 0.010 x10 3/uL 0.000-0.100 N code = IG#) LYMPHOCYTE # (test code = LY#) 1.26 10 3/uL 1.50-4.00 L MONOCYTE # (test code = MO#) 0.63 10 3/uL 0.20-0.80 N EOSINOPHIL # (test code = EO#) 0.25 10 3/uL 0.0-0.5 N BASOPHIL # (test code = BA#) 0.01 10 3/uL 0.0-0.1 N COVID 19 INHOUSE [id number] 03:47:00 Test Item Value Reference Range Interpretation Comments COVID 19 INHOUSE NEGATIVE Negative Negative re sults do not AG (test code = preclude 201 9-nCoV infection [id number]) andshould not b e used as the sole basis for treatment or otherpatient ma nagement decisions. Nega tive results must becombined with clinical observ ations, patient history , andepidemiologi elba information.
--- NOTE | 2021-06-06 14:54 | RAD REPORT ---
EXAM DESCRIPTION: CT - [id number] - 06/06/2021 2:43 pm CLINICAL HISTORY: Trauma, head and neck injury. head trauma COMPARISON: No comparisons TECHNIQUE: Axial 5 mm thick images of the head were obtained. Axial 2 mm thick images of the cervical spine were obtained with sagittal and coronal reconstruction images generated and reviewed. All CT scans are performed using dose optimization technique as appropriate and may include automated exposure control or mA/KV adjustment according to patient size. FINDINGS: CT HEAD WITHOUT CONTRAST: No acute hemorrhage, hydrocephalus or extra-axial collection is identified.No areas of brain edema or midline shift. The paranasal sinuses and mastoids are clear.The calvarium is intact. CT CERVICAL SPINE WITHOUT CONTRAST: No fracture or subluxation.No prevertebral soft tissues swelling is identified. A partially visualize d pulmonary nodule is present in the left lung. IMPRESSION: No acute intracranial or cervical spine findings.
[2021-06-06 15:17] LABS: Urine Blood 3+ (Negative); Urine Glucose Negative (Negative); Urine Protein 2+ (Negative); Urine Specific Gravity 1.025 (1.005-1.030); Urine pH 6.5 (5.0-7.0)
--- NOTE | 2021-06-06 15:19 | EDPHYS ---
Physician Documentation [facility] Name: Melida Ravi Age: 31 yrs Sex: Female : 1990 Arrival Date: 06/06/2021 Time: 13:55 Bed 18 Private MD: ED Physician Cathy Garcia HPI: 06/06 14:19 This 31 yrs old Black Female presents to ER via EMS with complaints of syncope. ma2 14:19 31-year-old female healthy with no past medical history, has been lightheaded today did ma2 not eat anything today decreased p.o. intake for 2 days because she had increased stress due to miscarriage 2 days ago patient has no bleeding or abdominal pain or vomiting or diarrhea. Of note she said that she passed out and hit the back of the head, patient is emotional and crying at this time. Has no symptoms no chest pain.. 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 - Social history:: Smoking status: Patient denies any tobacco usage or history of. - Family history:: not pertinent. ROS: 14:19 Constitutional: Negative for fever, chills, and weight loss. ma2 14:19 All other systems are negative. Exam: 14:19 Constitutional: This is a well developed, well nourished patient who is awake, alert, ma2 and in no acute distress. Head/Face: Normocephalic, atraumatic. Eyes: Pupils equal round and reactive to light, extra-ocular motions intact. Lids and lashes normal. Conjunctiva and sclera are non-icteric and not injected. Cornea within normal limits. Periorbital areas with no swelling, redness, or edema. ENT: Nares patent. No nasal discharge, no septal abnormalities noted. Tympanic membranes are normal and external auditory canals are clear. Oropharynx with no redness, swelling, or masses, exudates, or evidence of obstruction, uvula midline. Mucous membranes moist. Neck: Trachea midline, no thyromegaly or masses palpated, and no cervical lymphadenopathy. Supple, full range of motion without nuchal rigidity, or vertebral point tenderness. No Meningismus. Chest/axilla: Normal chest wall appearance and motion. Nontender with no deformity. No lesions are appreciated. Cardiovascular: Regular rate and rhythm with a normal S1 and S2. No gallops, murmurs, or rubs. Normal PMI, no JVD. No pulse deficits. Respiratory: Lungs have equal breath sounds bilaterally, clear to auscultation and percussion. No rales, rhonchi or wheezes noted. No increased work of breathing, no retractions or nasal flaring. Abdomen/GI: Soft, non-tender, with normal bowel sounds. No distension or tympany. No guarding or rebound. No evidence of tenderness throughout. Back: No spinal tenderness. No costovertebral tenderness. Full range of motion. Skin: Warm, dry with normal turgor. Normal color with no rashes, no lesions, and no evidence of cellulitis. MS/ Extremity: Pulses equal, no cyanosis. Neurovascular intact. Full, normal range of motion. Neuro: Awake and alert, GCS 15, oriented to person, place, time, and situation. Cranial nerves II-XII grossly intact. Motor strength 5/5 in all extremities. Sensory grossly intact. Cerebellar exam normal. Normal gait. Vital Signs: 13:57 BP 121 / 101; Pulse 107; Resp 18; Temp 99.2; Pulse Ox 98% ; Weight 58.97 kg; Height 5 ll1 ft. 9 in. (175.26 cm); Pain 9/10; 15:00 BP 123 / 101; Pulse 90; Resp 16; ll1 15:41 BP 142 / 101; Pulse 81; Resp 16; Pulse Ox 98% on R/A; Pain 7/10; ll1 13:57 Body Mass Index 19.20 (58.97 kg, 175.26 cm) ll1 MDM: 14:08 Patient medically screened. ma2 14:19 Differential diagnosis: cardiac arrhythmia, hypovolemia, near-syncope, , ma2 syncope. Data reviewed: vital signs, nurses notes. Counseling: I had a detailed discussion with the patient and/or guardian regarding: the historical points, exam findings, and any diagnostic results supporting the discharge/admit diagnosis, the presence of at least one elevated blood pressure reading (>120/80) during this emergency department visit, the need for outpatient follow up. Response to treatment: the patient's symptoms have resolved after treatment, EKG is done and shows no Brugada, no prolonged QT, no S1Q3T3 rate is 93 sinus regular. No ischemic changes. Low risk syncope per [place] rule. 06/06 15:17 Order name: Urine Dipstick-Ancillary [facility] 06/06 15:19 Order name: Urine --Ancillary (enter results) eb 06/06 13:56 Order name: Urine Dipstick-Ancillary (obtain specimen); Complete Time: 15:18 [facility] 06/06 14:19 Order name: CT Head C Spine; Complete Time: 15:06 [facility] 06/06 13:56 Order name: Urine Test (obtain specimen); Complete Time: 15:18 ma2 06/06 13:56 Order name: EKG - Nurse/Tech; Complete Time: 14:02 ma2 Administered Medications: 15:25 Drug: Ondansetron 4 mg Route: PO; 1 15:43 Follow up: Response: No adverse reaction 1 15:27 Drug: [place] (HYDROcodone-acetaminophen) 10 mg-325 mg 1 tabs {Note: rass0. pain 10/10.} ll1 Route: PO; 15:43 Follow up: Response: No adverse reaction; Pain is decreased; RASS: Alert and Calm (0) 1 Disposition Summary: 06/06/21 15:18 Discharge Ordered Location: Home ma2 Condition: Stable ma2 Diagnosis - Syncope Near ma2 - UTI/ Urinary tract infection, site not specified ma2 Followup: ma2 - With: Private Physician - When: Tomorrow - Reason: If symptoms return, Continuance of care Discharge Instructions: - Discharge Summary Sheet ma2 - Urinary Tract Infection, Adult ma2 - Syncope, [id number] ma2 Forms: - Medication Reconciliation Form ma2 - Thank You Letter ma2 - Antibiotic Education ma2 - Prescription Opioid Use ma2 - Work release form ll1 Prescriptions: - Bactrim DS 800-160 mg Oral Tablet - take 1 tablet by ORAL route every 12 hours for 5 days; 14 tablet; Refills: 0, ma2 Product Selection Permitted Signatures: Dispatcher [employer] EDNV Cathy Garcia MD MD ma2 Mumtaz Hill RN RN ll1
--- NOTE | 2021-06-06 15:19 | ER ---
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 Some arguing was ll1 going on with family members just before syncope event. Reports back of head pain and R shoulder pain now. EMS states: VSS. Fingerstick 106. Coronavirus screen: Vaccine status: Patient reports being unvaccinated. Client denies travel out of the [place] in the last 14 days. At this time, the client does not indicate any symptoms associated with coronavirus-19. Ebola Screen: Patient denies travel to an Ebola-affected area in the 21 days before illness onset. Initial Sepsis Screen: Does the patient meet any 2 criteria? HR > 90 bpm. No. Patient's initial sepsis screen is negative. Does the patient have a suspected source of infection? No. Patient's initial sepsis screen is negative. Risk Assessment: Do you want to hurt yourself or someone else? Patient reports no desire to harm self or others. Onset of symptoms was June 06, 2021. 13:57 Method Of Arrival: EMS 1 13:57 Acuity: FERNANDO 3 ll1 Triage Assessment: 13:59 General: Appears distressed, uncomfortable, Behavior is cooperative, appropriate for [facility] age. Pain: Complains of pain in head Quality of pain is described as aching. Neuro: Reports headache a syncopal episode. Cardiovascular: No deficits noted. Respiratory: No deficits noted. GI: Reports nausea. Musculoskeletal: Reports pain in R shoulder. Injury Description: Bruise. 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 - Social history:: Smoking status: Patient denies any tobacco usage or history of. - Family history:: not pertinent. Screenin:00 Abuse screen: Denies threats or abuse. Nutritional screening: No deficits noted. ll1 Tuberculosis screening: No symptoms or risk factors identified. Fall Risk Fall in past 12 months (25 points). IV access (20 points). Gait- Weak (10 pts.). Total Balderrama Fall Scale indicates High Risk Score (45 or more points). Fall prevention measures have been instituted. Side Rails Up X 2 Frequent Obs/Assessments Occuring As available patient and family educated on Fall Prevention Program and Strategies. Assessment: 15:00 Reassessment: No changes from previously documented assessment. Patient and/or family ll1 updated on plan of care and expected duration. Pain level reassessed. Patient is alert, oriented x 3, equal unlabored respirations, skin warm/dry/pink. 15:43 Reassessment: No changes from previously documented assessment. Patient and/or family ll1 updated on plan of care and expected duration. Pain level reassessed. Patient is alert, oriented x 3, equal unlabored respirations, skin warm/dry/pink. Vital Signs: 13:57 BP 121 / 101; Pulse 107; Resp 18; Temp 99.2; Pulse Ox 98% ; Weight 58.97 kg; Height 5 ll1 ft. 9 in. (175.26 cm); Pain 9/10; 15:00 BP 123 / 101; Pulse 90; Resp 16; ll1 15:41 BP 142 / 101; Pulse 81; Resp 16; Pulse Ox 98% on R/A; Pain 7/10; ll1 13:57 Body Mass Index 19.20 (58.97 kg, 175.26 cm) ll1 ED Course: 13:55 Patient arrived in ED. eb 13:55 Cathy Garcia MD is Attending Physician. ma2 13:56 Mumtaz Hill, YVON is Primary Nurse. ll1 13:56 Arm band placed on Patient placed in an exam room, on a stretcher. ll1 13:59 Triage completed. ll1 14:01 Patient has correct armband on for positive identification. Bed in low position. Call ll1 light in reach. Side rails up X 1. cardiac monitor technician on. Pulse ox on. NIBP on. 14:15 EKG done, by ED staff, reviewed by Cathy Garcia MD. mb7 14:45 CT Head C Spine In Process Unspecified. EDMS 15:43 No provider procedures requiring assistance completed. Patient did not have IV access 1 during this emergency room visit. Administered Medications: 15:25 Drug: Ondansetron 4 mg Route: PO; 1 15:43 Follow up: Response: No adverse reaction 1 15:27 Drug: [place] (HYDROcodone-acetaminophen) 10 mg-325 mg 1 tabs {Note: rass0. pain 10/10.} 1 Route: PO; 15:43 Follow up: Response: No adverse reaction; Pain is decreased; RASS: Alert and Calm (0) 1 Outcome: 15:18 Discharge ordered by . al2 15:43 Discharged to home ambulatory. 1 15:43 Condition: stable 15:43 Discharge instructions given to patient, Instructed on discharge instructions, follow up and referral plans. medication usage, Demonstrated understanding of instructions, follow-up care, medications, Prescriptions given X 1. 15:44 Patient left the ED. 1 Signatures: Dispatcher [employer] EDMS Cathy Garcia MD MD al2 Shadia oCx Lynsay RN RN 1 Sarah Harding mb7
[2021-06-06] MEDS ORDERED: ONDANSETRON 4 MG (ODT) TAB ONE (15:27)
[2021-06-06] MEDS ORDERED: HYDROCODONE/APAP 10/325 TAB ONE (15:27)
[2021-06-06 15:55] VITALS: BP 121/101; TEMP 99.2; O2SAT 98
[2021-06-06 17:06] LABS: Urine Specific Gravity/Preg 1.025 (1.005-1.030)
== END 2021-06-06 15:44 | disposition home or self-care (01) ==
LOC: ER 13:49
DX: N39.0 Urinary tract infection, site not specified (principal); Z91.018 Allergy to other foods; Z87.442 Personal history of urinary calculi
CPT/HCPCS: 70450; 72125; 81003; 81025; 93005; 99284

== ENCOUNTER 2021-08-09 13:34 | Emergency (ER) | payer SELFPAY ==
--- OUTSIDE RECORDS SUMMARY | 2021-08-09 13:38 | XMS REPORT | Continuity of Care Document ---
:1990 Author Organization [facility] t Address [address] [place] [address] Care Team Providers Name Role Phone Angel Luis, Clint Attending Clinician Unavailable Agnel Luis, X Admitting Clinician Unavailable Payers Payer Name Policy Type Policy Number Effective Date Expiration Date S ource Problems This patient has no known problems. Allergies, Adverse Reactions, Alerts Allergy Allergy Status Severity Reaction(s) Onset Inactive Treating Comm ents Source Name Type Date Date Clinician No Known DA Active U [facility] Allergie 03-15 [facility] 00:00: [facility] 00 are [place] Medications This patient has no known medications. Procedures This patient has no known procedures. Encounters Start End Encounter Admission Attending Care Care Encounter Source Date/Time Date/Time Type Type Clinicians Facility Department ID 2021-03-15 2021-03-17 Inpatient EM Camilo Hein [facility] [id number] [facility] 03:59:00 13:31:00 [facility] are [place] 2021-03-15 2021-03-17 Inpatient EM Camilo Hein [facility] [id number] [facility] 03:59:00 13:31:00 32 [facility] are [place] Results Test Description Test Time Test Comments [...] BA#) 0.01 10 3/uL 0.0-0.1 N SED [id number] 11:50:00 Test Item Value Reference Range Interpretation Comments SED RATE (test code = SEDW) 17 mm/hr 0-20 N BASIC METABOLIC [id number] 10:52:00 Test Item Value Reference Range Interpretation [...] mg/dL 8.5-10.1 L = CA) C REACTIVE [id number] 10:52:00 Test Item Value Reference Range Interpretation Comments C REACTIVE PROTEIN (test code = 0.50 mg/dL 0.00-0.33 H CRP) URINALYSIS [id number] 05:31:00 Test Item Value Reference Range Interpretation [...] code = OCCASIONAL /lpf MUCU) BASIC METABOLIC [id number] 08:18:00 Test Item Value Reference Range Interpretation [...] mg/dL 8.5-10.1 L = CA) CBC W/AUTO [id number] 08:02:00 Test Item Value Reference Range Interpretation [...] LDLC) 76 mg/dL 0-100 N COMPREHENSIVE METABOLIC [id number] 11:19:00 Test Item Value Reference Range Interpretation [...] PHOSPHATASE (test code = ALKP) CBC W/AUTO [id number] 10:59:00 Test Item Value Reference Range Interpretation [...] 10 3/uL 0.0-0.1 N COVID 19 INHOUSE [id number] 03:47:00 Test Item Value Reference Range Interpretation Comments COVID 19 INHOUSE NEGATIVE Negative Negative re sults do not AG (test code = preclude 201 9-nCoV infection [id number]) andshould not b e used as the sole basis for treatment or otherpatient ma nagement decisions. Nega tive results must becombined with clinical observ ations, patient history , andepidemiologi elba information.
[2021-08-09] MEDS ORDERED: BENZONATATE 100 MG CAP PO ONE (15:01)
[2021-08-09] MEDS ORDERED: ONDANSETRON 4 MG (ODT) TAB ONE (15:01)
--- NOTE | 2021-08-09 15:23 | RAD REPORT ---
EXAM DESCRIPTION: RAD - Chest Pa And Lat (2 Views) - 08/09/2021 2:48 pm CLINICAL HISTORY: COUGH COMPARISON: Portable June 2016, two view chest September 2014 TECHNIQUE: Frontal and lateral views of the chest were obtained. FINDINGS: The lungs are clear. Heart size is normal and central vasculature is within normal limit s. No pleural effusion or pneumothorax seen. No acute bony finding noted. No aortic abnormality. No significant change from comparison study. IMPRESSION: No acute cardiopulmonary process.
[2021-08-09] MEDS ORDERED: ONDANSETRON 4 MG/2 ML VIAL ONE (17:04)
[2021-08-09] MEDS ORDERED: NA CHLORIDE 0.9% 1,000 ML ONE ×2 (17:04→21:57)
[2021-08-09] MEDS ORDERED: FAMOTIDINE 20 MG/2 ML VIAL IV ONE (17:04)
[2021-08-09 17:10] LABS: Hematocrit 35.7 % (36.0-45.0); Lymphocytes % 14.9 % (15.3-44.8); MPV 7.3 fL (7.6-11.3); RBC Red Blood Cell Count 4.25 M/uL (3.86-4.86)
[2021-08-09 17:30] LABS: AST/SGOT 7 U/L (15-37); Albumin 3.1 g/dL (3.4-5.0); Alkaline Phosphatase 63 U/L (45-117); BUN Blood Urea Nitrogen 8 mg/dL (7-18); Bicarbonate 30 mmol/L (21-32); Bilirubin Total 0.3 mg/dL (0.2-1.0); Glomerular Filtration Rate 100 ml/min (=/>90); Glucose Level 81 mg/dL (74-106); Lipase 24 U/L (73-393); Potassium 3.3 mmol/L (3.5-5.1); Protein, Total 7.1 g/dL (6.4-8.2); Sodium Level 137 mmol/L (136-145)
[2021-08-09 17:31] LABS: ALT/SGPT < 10 U/L (12-78)
[2021-08-09 18:57] LABS: Urine Blood 3+ (Negative); Urine Glucose Negative (Negative); Urine Protein 2+ (Negative); Urine Specific Gravity >=1.030 (1.005-1.030)
[2021-08-09] MEDS ORDERED: PROMETHAZINE INJ 25 MG/ML AMP ONE (19:01)
[2021-08-09 19:19] LABS: Urine Amorphous Sediment 1+ /HPF (NONE SEEN); Urine Bacteria LOADED /HPF (<20); Urine RBC 20-50 /HPF (NONE SEEN)
--- NOTE | 2021-08-09 20:09 | RAD REPORT ---
EXAM DESCRIPTION: CT - Abdomen Pelvis W Contrast - 08/09/2021 7:45 pm CLINICAL HISTORY: Abdominal pain, acute, nonlocalized COMPARISON: Abdomen Pelvis W Contrast dated 03/14/2021; CT ABD PELVIS W CONTRAST dated 06/24/2013 TECHNIQUE: Biphasic, helical CT imaging of the abdomen and pelvis was performed following 100 ml non -ionic IV contrast. No oral contrast administered. All CT scans are performed using dose optimization technique as appropriate and may include automated exposure control or mA/KV adjustment according to patient size. FINDINGS: No suspicious findings in the lung bases. The liver, spleen, and pancreas show no suspicious findings. Gallbladder and biliary tree are also wi thout suspicious finding. Right renal parenchyma enhances normally with no hydronephrosis, mass or other suspicious parenchymal finding. No obstructing or nonobstructing calculi. Partially filled urinary bladder shows no suspici ous finding. Uterus and ovaries show no suspicious findings. There is marked dilatation of the left-side pelvis and calices. A 3.7 centimeter staghorn calculus fi lls the left renal pelvis. There are numerous nonobstructing calculi layering in the dependent portio n of the dilated calices. The dilatation pattern is not clearly different. Intermediate density mater ial is present filling and dilating the proximal third of the left ureter. More distally the ureter i s normal in diameter. There are no stones in the ureter. No adrenal abnormalities. Left renal parench yma is thinned by the calyx dilatation. Parenchymal enhancement is slightly delayed compared to the r ight kidney. No solid mass in the left renal parenchyma. Hay of the renal pelvis do appear to enhan ce slightly similar to the February study. No dilated bowel loops or bowel wall thickening. No suspicion for appendicitis. No free air, free flu id or inflammatory stranding. No hernia, mass or bulky lymphadenopathy. No suspicious bony findings. IMPRESSION: Thinned though granulomatous pyelonephritis pattern of the left kidney and collecting sy stem again noted. Left renal findings are similar to the February study. Noncalcified hyperdense material is present filling and dilating the proximal third of the left urete r. This may be inflammatory debris related to the underlying left renal abnormalities. An obstructin g mass of the left ureter cannot be excluded. No acute GI or PROFESSIONAL HEALTHCARE REPRESENTATIVE process. No acute findings identifiable on this study.
--- NOTE | 2021-08-09 20:27 | EDPHYS ---
Physician Documentation [facility] Name: Melida Ravi Age: 31 yrs Sex: Female : 1990 Arrival Date: 08/09/2021 Time: 13:37 Bed 11 Private MD: ED Physician Cathy Garcia HPI: 08/09 14:15 This 31 yrs old Black Female presents to ER via Ambulatory with complaints of Cough, cp Vomiting, Decreased Appetite, Weakness. 14:15 The patient or guardian reports cough, that is intermittent, with productive sputum, cp that is purulent. 14:15 Onset: The symptoms/episode began/occurred 3 day(s) ago. cp 14:15 Associated signs and symptoms: Pertinent positives: nausea, sore throat, vomiting, cp abdominal pain, Pertinent negatives: diarrhea, fever. 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 - Social history:: Smoking status: Patient denies any tobacco usage or history of. ROS: 14:20 Constitutional: Positive for poor PO intake, Negative for fever. cp 14:20 Eyes: Negative for injury, pain, redness, and discharge. cp 14:20 ENT: Positive for sore throat, Negative for drainage from ear(s), ear pain, difficulty swallowing, difficulty handling secretions. 14:20 Cardiovascular: Negative for chest pain. 14:20 Respiratory: Positive for cough, Negative for shortness of breath, wheezing. 14:20 Abdomen/GI: Positive for abdominal pain, nausea, vomiting, Negative for diarrhea, constipation, hematemesis. 14:20 Neuro: Negative for altered mental status, dizziness, headache, weakness. 14:20 All other systems are negative. Exam: 14:25 Constitutional: The patient appears in no acute distress, alert, awake, cp non-diaphoretic, non-toxic, well developed, well nourished, obviously ill. 14:25 Head/Face: Normocephalic, atraumatic. cp 14:25 Eyes: Periorbital structures: appear normal, Conjunctiva: normal, no exudate, no injection, Sclera: no appreciated abnormality, Lids and lashes: appear normal, bilaterally. 14:25 ENT: External ear(s): are unremarkable, Ear canal(s): are normal, clear, TM's: dullness, bilaterally, Nose: is normal, Mouth: Lips: moist, Oral mucosa: pink and intact, moist, Posterior pharynx: Airway: no evidence of obstruction, patent. 14:25 Neck: ROM/movement: is normal, is supple, without pain, no range of motions limitations, no meningismus, no nuchal rigidity. 14:25 Chest/axilla: Inspection: normal. 14:25 Cardiovascular: Rate: tachycardic, Rhythm: regular. 14:25 Respiratory: the patient does not display signs of respiratory distress, Respirations: normal, no use of accessory muscles, no retractions, labored breathing, is not present, Breath sounds: are clear throughout, no decreased breath sounds, no stridor, no wheezing. 14:25 Abdomen/GI: Inspection: abdomen appears normal, Bowel sounds: active, all quadrants, Palpation: soft, in all quadrants, moderate abdominal tenderness, in the left upper quadrant and left lower quadrant, rebound tenderness, is not appreciated, voluntary guarding, is not appreciated, involuntary guarding, is not appreciated. 14:25 Neuro: Orientation: to person, place \\T\\ time. Mentation: is normal, Cerebellar function: is grossly normal, Motor: moves all fours, strength is normal, Sensation: is normal. Vital Signs: 13:58 BP 116 / 72; Pulse 102; Resp 16; Temp 99.0(O); Pulse Ox 98% on R/A; Weight 53.52 kg; vg1 Height 5 ft. 9 in. (175.26 cm); Pain 10/10; 19:02 BP 110 / 67; Pulse 79; Resp 18 S; Pulse Ox 97% on R/A; jd3 13:58 Body Mass Index 17.43 (53.52 kg, 175.26 cm) vg1 MDM: 14:44 Patient medically screened. cp 20:24 Data reviewed: vital signs, nurses notes, lab test result(s), radiologic studies, CT cp scan. Counseling: I had a detailed discussion with the patient and/or guardian regarding: the historical points, exam findings, and any diagnostic results supporting the discharge/admit diagnosis, lab results, radiology results, the need to transfer to another facility, [facility] does not immediately have the required specialist. Response to treatment: the patient's symptoms have mildly improved after treatment. 08/09 14:04 Order name: SARS-COV-2 RT PCR (Document "Date of Onset" if Symptomatic); Complete Time: [facility] 16:16 08/09 16:16 Interpretation: Reviewed. 08/09 14:04 Order name: Flu; Complete Time: 16:16 [facility] 08/09 14:04 Order name: Strep; Complete Time: 16:16 [facility] 08/09 14:55 Order name: Throat Culture [facility] 08/09 16:44 Order name: CBC with Diff; Complete Time: 17:52 08/09 17:52 Interpretation: Normal except: HGB 11.7; HCT 35.7; MCV 83.8; MPV 7.3; HCERELLE% 73.9; LYM% cp 14.9. 08/09 16:44 Order name: CMP; Complete Time: 17:52 08/09 17:53 Interpretation: Normal except: K 3.3; AST 7; ALT < 10; ALB 3.1; GLOB 4.0; A/G 0.8. 08/09 16:44 Order name: Lipase; Complete Time: 17:52 08/09 17:53 Interpretation: Reviewed. 08/09 18:57 Order name: Urine Microscopic Only; Complete Time: 19:51 [facility] 08/09 19:54 Interpretation: UWBC LOADED; URBC 20-50; UBACT LOADED; SQEPI 5-10; Reviewed. 08/09 18:58 Order name: Urine Dipstick-Ancillary; Complete Time: 19:51 [facility] 08/09 19:55 Interpretation: UKET Trace; UBLD 3+; UPROT 2+; U NIT Positive; UESTR 3+. 08/09 19:22 Order name: Urine Culture [facility] 08/09 19:56 Order name: Procalcitonin 08/09 19:56 Order name: Lactate 08/09 19:56 Order name: Blood Culture Adult (2) 08/09 14:10 Order name: Urine Dipstick-Ancillary (obtain specimen); Complete Time: 19:03 cp 08/09 14:10 Order name: Urine Test (obtain specimen); Complete Time: 19:03 cp 08/09 14:10 Order name: XRAY Chest Pa And Lat (2 Views); Complete Time: 16:16 cp 08/09 15:46 Order name: PO challenge; Complete Time: 15:51 cp 08/09 17:54 Order name: CT Abd/Pelvis - IV Contrast Only; Complete Time: 20:11 cp 08/09 19:58 Order name: Procalcitonin EDMS 08/09 16:44 Order name: IV Saline Lock; Complete Time: 16:56 cp 08/09 16:44 Order name: Labs collected and sent; Complete Time: 16:56 cp Administered Medications: 14:59 Drug: Zofran (Ondansetron) 4 mg Route: PO; jd3 15:50 Follow up: Response: No adverse reaction jd3 14:59 Drug: Tessalon Perle (benzonatate) 100 mg Route: PO; jd3 15:50 Follow up: Response: No adverse reaction jd3 17:03 Drug: NS 0.9% 1000 ml Route: IV; Rate: 1 bolus; Site: left antecubital; jd3 18:00 Follow up: Response: No adverse reaction; IV Status: Completed infusion jd3 17:03 Drug: Pepcid (famotidine) 20 mg Route: IVP; Site: left antecubital; jd3 18:00 Follow up: Response: No adverse reaction jd3 17:04 Drug: Zofran (Ondansetron) 4 mg Route: IVP; Site: left antecubital; jd3 18:00 Follow up: Response: No adverse reaction jd3 19:01 Drug: Phenergan (promethazine) 12.5 mg Route: IVP; Site: left antecubital; jd3 22:02 Drug: morphine 4 mg Route: IVP; Infused Over: 4 mins; Site: left antecubital; vc1 22:02 Drug: NS 0.9% 1000 ml Route: IV; Rate: 125 ml/hr; Site: left antecubital; vc1 22:02 Drug: Potassium Effervescent Tablet 50 mEq Route: PO; vc1 22:03 Drug: Rocephin - (cefTRIAXone) 1 grams Route: IVPB; Infused Over: 30 mins; Site: left vc1 antecubital; Disposition Summary: 08/09/21 20:26 Transfer Ordered Transfer Location: [facility] cp Reason: Higher level of care cp Condition: Stable cp Problem: new cp Symptoms: have improved cp Accepting Physician: Doctor(08/09/21 22:41) shantal Diagnosis - Chronic obstructive pyelonephritis cp - Calculus of kidney with calculus of ureter - left cp Forms: - Medication Reconciliation Form cp - SBAR form cp Signatures: Dispatcher [employer] EDSarah Squires, RN RN bb Jevon Laughlin PA PA cp Davies, Jonathon RN RN iLz Woodard RN RN vg1 Renee Fry RN RN vc1 Corrections: (The following items were deleted from the chart) 17:53 17:53 Normal except: K 3.3. cp cp 22:41 20:26 Doctor cp bb
--- NOTE | 2021-08-09 20:27 | ER ---
Nurse's Notes [facility] Name: Melida Ravi Age: 31 yrs Sex: Female : 1990 Arrival Date: 08/09/2021 Time: 13:37 Bed 11 Private MD: Diagnosis: Chronic obstructive pyelonephritis;Calculus of kidney with calculus of ureter-left Presentation: 08/09 13:58 Chief complaint: Patient states: cough, sore throat, and body aches x 3 days; states NV vg1 with ABD pain and states "i havent ate in three days". Coronavirus screen: Vaccine status: Patient reports being unvaccinated. Client denies travel out of the [place] in the last 14 days. Ebola Screen: Patient denies exposure to infectious person. Patient denies travel to an Ebola-affected area in the 21 days before illness onset. Initial Sepsis Screen: Does the patient meet any 2 criteria? HR > 90 bpm. Does the patient have a suspected source of infection? No. Patient's initial sepsis screen is negative. Risk Assessment: Do you want to hurt yourself or someone else? Patient reports no desire to harm self or others. Onset of symptoms was August 06, 2021. 13:58 Method Of Arrival: Ambulatory vg1 13:58 Acuity: FERNANDO 3 vg1 Triage Assessment: 14:02 General: Appears uncomfortable, Behavior is cooperative. Pain: Complains of pain in vg1 abdomen. GI: Reports nausea, vomiting, Patient currently denies diarrhea. 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 - Social history:: Smoking status: Patient denies any tobacco usage or history of. Screenin:01 Abuse screen: Denies threats or abuse. Nutritional screening: No deficits noted. jd3 Tuberculosis screening: No symptoms or risk factors identified. Fall Risk Ambulatory Aid- None/Bed Rest/Nurse Assist (0 pts). Gait- Normal/Bed Rest/Wheelchair (0 pts) Mental Status- Oriented to own ability (0 pts). Total Balderrama Fall Scale indicates No Risk (0-24 pts). Assessment: 14:59 General: Appears in no apparent distress. comfortable, Behavior is calm, cooperative, jd3 appropriate for age. Pain: Complains of pain in general body aches Quality of pain is described as aching. Neuro: Love Agitation-Sedation Scale (RASS): 0 - Alert and Calm Level of Consciousness is awake, alert, obeys commands, Oriented to person, place, time, situation. Cardiovascular: Denies chest pain, Capillary refill < 3 seconds Patient's skin is warm and dry. Respiratory: Reports cough that is persistent Airway is patent Respiratory effort is even, unlabored, Respiratory pattern is regular, symmetrical, Breath sounds are clear bilaterally. GI: Abdomen is flat, non-distended, Reports nausea, vomiting. : No signs and/or symptoms were reported regarding the genitourinary system. EENT: No signs and/or symptoms were reported regarding the EENT system. Derm: Skin is intact, Skin is dry, Skin is normal, Skin temperature is warm. Musculoskeletal: Circulation, motion, and sensation intact. Range of motion: intact in all extremities. 16:09 Reassessment: Patient appears in no apparent distress at this time. No changes from jd3 previously documented assessment. Patient and/or family updated on plan of care and expected duration. Pain level reassessed. Patient is alert, oriented x 3, equal unlabored respirations, skin warm/dry/pink. 17:04 Reassessment: Patient appears in no apparent distress at this time. Patient and/or jd3 family updated on plan of care and expected duration. Pain level reassessed. Patient is alert, oriented x 3, equal unlabored respirations, skin warm/dry/pink. reporting continued abdominal pain and nausea. 19:02 Reassessment: Patient appears in no apparent distress at this time. No changes from jd3 previously documented assessment. Patient and/or family updated on plan of care and expected duration. Pain level reassessed. Patient is alert, oriented x 3, equal unlabored respirations, skin warm/dry/pink. 22:41 Reassessment: Patient is alert, oriented x 3, equal unlabored respirations, skin bb warm/dry/pink. [facility] at bedside for pt transfer to [facility]. Vital Signs: 13:58 BP 116 / 72; Pulse 102; Resp 16; Temp 99.0(O); Pulse Ox 98% on R/A; Weight 53.52 kg; vg1 Height 5 ft. 9 in. (175.26 cm); Pain 10/10; 19:02 BP 110 / 67; Pulse 79; Resp 18 S; Pulse Ox 97% on R/A; jd3 13:58 Body Mass Index 17.43 (53.52 kg, 175.26 cm) vg1 ED Course: 13:37 Patient arrived in ED. as 13:48 Jevon Laughlin PA is PHCP. cp 13:48 Cathy Garcia MD is Attending Physician. cp 14:02 Triage completed. vg1 14:02 Arm band placed on. vg1 14:08 COVID swab sent to lab. Flu and/or RSV swab sent to lab. Strep swab sent to lab. vg1 14:50 XRAY Chest Pa And Lat (2 Views) In Process Unspecified. EDMS 14:52 Vince Ochoa, YVON is Primary Nurse. jd3 15:01 Patient has correct armband on for positive identification. Bed in low position. Call jd3 light in reach. Side rails up X 1. Pulse ox on. NIBP on. 16:56 Inserted saline lock: 20 gauge in left antecubital area, using aseptic technique. Blood jd3 collected. 18:04 Radiology exam delayed due to test not completed at this time. mw3 18:41 Radiology exam delayed due to test not completed at this time. mw3 19:47 CT Abd/Pelvis - IV Contrast Only In Process Unspecified. EDMS 20:25 initiated a transfer with Bere from [facility] [place]. mw2 20:52 Conne[address] Jevon COLLADO with Dr. Stephens from [facility]. mw2 21:19 administrative approval given by Bere Ibrahim/ patient has been accepted to [address] bed A 415/ Dr. Stephens accepted the patient in transfer/report to be called to [phone]. Administered Medications: 14:59 Drug: Zofran (Ondansetron) 4 mg Route: PO; jd3 15:50 Follow up: Response: No adverse reaction jd3 14:59 Drug: Tessalon Perle (benzonatate) 100 mg Route: PO; jd3 15:50 Follow up: Response: No adverse reaction jd3 17:03 Drug: NS 0.9% 1000 ml Route: IV; Rate: 1 bolus; Site: left antecubital; jd3 18:00 Follow up: Response: No adverse reaction; IV Status: Completed infusion jd3 17:03 Drug: Pepcid (famotidine) 20 mg Route: IVP; Site: left antecubital; jd3 18:00 Follow up: Response: No adverse reaction jd3 17:04 Drug: Zofran (Ondansetron) 4 mg Route: IVP; Site: left antecubital; jd3 18:00 Follow up: Response: No adverse reaction jd3 19:01 Drug: Phenergan (promethazine) 12.5 mg Route: IVP; Site: left antecubital; jd3 22:02 Drug: morphine 4 mg Route: IVP; Infused Over: 4 mins; Site: left antecubital; vc1 22:02 Drug: NS 0.9% 1000 ml Route: IV; Rate: 125 ml/hr; Site: left antecubital; vc1 22:02 Drug: Potassium Effervescent Tablet 50 mEq Route: PO; vc1 22:03 Drug: Rocephin - (cefTRIAXone) 1 grams Route: IVPB; Infused Over: 30 mins; Site: left vc1 antecubital; Medication: 15:01 VIS not applicable for this client. jd3 Outcome: 20:26 ER care complete, transfer ordered by MD. salazar 22:41 Patient left the ED. bb Signatures: Dispatcher [employer] EDSarah Colin Brenda RN RN bb Jevon Laughlin PA PA cp Davies, Jonathon, RN RN jd3 Eneida Mckeon mw2 Dotty Slater mw3 Liz Ardon RN RN vg1 Renee Fry RN RN vc1
[2021-08-09] MEDS ORDERED: CEFTRIAXONE 1000 MG/VIAL ONE (21:57)
[2021-08-09] MEDS ORDERED: NA CHLORIDE 0.9% 50 ML ONE (21:57)
[2021-08-09] MEDS ORDERED: POTASSIUM 25 MEQ EFFERV TAB ONE (21:57)
[2021-08-09] MEDS ORDERED: MORPHINE 4 MG/ML SYR ONE (21:57)
[2021-08-09 22:49] VITALS: TEMP 99
[2021-08-09 22:51] VITALS: BP 110/67; O2SAT 97
== END 2021-08-09 22:41 | disposition short-term general hospital (02) ==
LOC: ER 13:34
DX: N11.1 Chronic obstructive pyelonephritis (principal); N20.2 Calculus of kidney with calculus of ureter; R05.8 Other specified cough; R11.10 Vomiting, unspecified; R10.9 Unspecified abdominal pain; U07.1 COVID-19; Z91.018 Allergy to other foods
CPT/HCPCS: 36415; 71046; 74177; 80053; 81003; 81015; 83605; 83690; 84145; 85025; 87040; 87070; 87081; 87086; 87088; 87804; 96361; 96374; 96375; 99284; J2405; J2550; J3490; J7030; Q0162; Q9967; U0003

== ENCOUNTER 2023-06-07 09:27 | Emergency (ER) | payer SELFPAY ==
[2023-06-07 10:29] LABS: SARS-CoV-2 Antigen CONTROL BLUE LINE VIS/BG OK; SARS-CoV-2 Antigen Rapid Res Negative (Negative)
[2023-06-07] MEDS ORDERED: ONDANSETRON 4 MG (ODT) TAB ONE (10:46)
[2023-06-07] MEDS ORDERED: ACETAMINOPHEN 500 MG TAB ONE (10:46)
--- NOTE | 2023-06-07 10:46 | RAD REPORT ---
EXAM DESCRIPTION: RAD - Chest Pa And Lat (2 Views) - 06/07/2023 10:00 am CLINICAL HISTORY: COUGH COMPARISON: Chest Pa And Lat (2 Views) dated 08/09/2021; Chest Single View dated 07/06/2016; CHEST SIN GLE VIEW dated 12/26/2014; CHEST PA AND LAT 2 VIEW dated 10/02/2014 TECHNIQUE: PA and lateral views of the chest were obtained. FINDINGS: The lungs are clear. Heart size is normal and central vasculature is within normal limits. No pleural effusion or pneumothorax seen. No acute bony finding noted. IMPRESSION: No acute cardiopulmonary process.
--- NOTE | 2023-06-07 11:34 | ER ---
Nurse's Notes [facility] Name: Melida Ravi Age: 33 yrs Sex: Female : 1990 Arrival Date: 06/07/2023 Time: 09:27 Bed 14 Private MD: Diagnosis: Acute upper respiratory infection, unspecified Presentation: 06/06 09:57 Chief complaint: Patient states: she has been watching her nephew who has been sick and ap3 she herself is now having body aches, cough, sore throat and decreased appetite for 2 days. Coronavirus screen: Client presents with at least one sign or symptom that may indicate coronavirus-19. Ebola Screen: No symptoms or risks identified at this time. Initial Sepsis Screen: Does the patient meet any 2 criteria? No. Patient's initial sepsis screen is negative. Does the patient have a suspected source of infection? No. Patient's initial sepsis screen is negative. Risk Assessment: Do you want to hurt yourself or someone else? Patient reports no desire to harm self or others. Onset of symptoms was June 05, 2023. 09:57 Method Of Arrival: Ambulatory ap3 09:57 Acuity: FERNANDO 4 ap3 Triage Assessment: 09:59 General: Appears in no apparent distress. Behavior is calm, cooperative, appropriate ap3 for age, Reports feeling ill for fatigue for. Pain: Complains of pain in generalized body aches. Neuro: Level of Consciousness is awake, alert, obeys commands, Oriented to person, place, time, situation. Cardiovascular: Patient's skin is warm and dry. Respiratory: Airway is patent Respiratory effort is even, unlabored, Respiratory pattern is regular, symmetrical. Historical: - Allergies: 09:58 [place]lysses; ap3 - Home Meds: 11:48 Albuterol Inhl [Active]; ko1 - PMHx: 09:58 Anemia; Asthma; Kidney stone; Seizures; ap3 - PSHx: 09:58 kidney stone SX; kidney removal (kidney stone SX); ap3 - Immunization history:: Adult Immunizations up to date. - Infectious Disease History:: Denies. - Social history:: Smoking status: Patient denies any tobacco usage or history of. Screenin:00 [facility] ED Fall Risk Assessment (Adult) History of falling in the last 3 months, ap3 including since admission No falls in past 3 months (0 pts) Confusion or Disorientation No (0 pts) Intoxicated or Sedated No (0 pts) Impaired Gait No (0 pts) Mobility Assist Device Used No (0 pt) Altered Elimination No (0 pt) Score/Fall Risk Level 0 - 2 = Low Risk Oriented to surroundings, Maintained a safe environment, Educated pt \T\ family on fall prevention, incl call for assistance when getting out of bed, Assessed \T\ reinforced patient's understanding of fall precautions, Provided non-skid footwear, Hourly rounding (assess needs \T\ fall precautionary measures) done, Used ambulatory aids as needed (educated on \T\ assisted with), Used gait belt as appropriate. Abuse screen: Denies threats or abuse. Nutritional screening: No deficits noted. Tuberculosis screening: No symptoms or risk factors identified. Assessment: 11:21 General: Appears in no apparent distress. ill, Behavior is calm, cooperative, ko1 appropriate for age. Pain: Denies pain. Neuro: No deficits noted. Cardiovascular: No deficits noted. Respiratory: Respiratory: Reports cough that is non-productive. 11:22 GI: Reports nausea, vomiting. : No deficits noted. EENT: Reports nasal congestion. ko1 Derm: No deficits noted. Musculoskeletal: No deficits noted. Vital Signs: 09:57 BP 118 / 84; Pulse 84; Resp 18; Temp 98.5; Pulse Ox 100% ; ap3 11:44 BP 114 / 78; Pulse 78; Resp 15; Pulse Ox 99% ; ko1 ED Course: 09:32 Patient arrived in ED. im 09:34 Donovan Rueda DO is Attending Physician. ms3 09:58 Triage completed. ap3 10:00 Arm band placed on right wrist. ap3 10:02 Chest Pa And Lat (2 Views) XRAY In Process Unspecified. EDMS 10:44 Odalys Mcghee, RN is Primary Nurse. ko1 11:22 Patient has correct armband on for positive identification. Bed in low position. Call ko1 light in reach. Side rails up X2. Provided Education on: na. Pulse ox on. NIBP on. Door closed. Noise minimized. Lights dimmed. Warm blanket given. 11:22 No provider procedures requiring assistance completed. Patient did not have IV access ko1 during this emergency room visit. 11:33 Dillan Moore DO is Referral Physician. ms3 Administered Medications: 10:45 Drug: Ondansetron PO 4 mg PO once Route: PO; ko1 11:15 Follow up: Response: No adverse reaction; Nausea is decreased ko1 10:46 Drug: Acetaminophen PO 1000 mg PO once Route: PO; ko1 11:15 Follow up: Response: No adverse reaction; Pain is decreased ko1 Medication: 10:00 VIS not applicable for this client. ap3 Outcome: 11:33 Discharge ordered by MD. ms3 11:44 Discharged to home ambulatory, ko1 11:44 Condition: improved 11:44 Discharge instructions given to patient, Instructed on discharge instructions, follow up and referral plans. medication usage, Demonstrated understanding of instructions, follow-up care, medications, Prescriptions given X 1, 11:49 Patient left the ED. ko1 Signatures: Dispatcher [employer] EDMS Mayra Kent RN RN ap3 Donovan Rueda DO DO ms3 Odalys Mcghee RN RN ko1 Karin Crespo Corrections: (The following items were deleted from the chart) 11:23 11:21 Respiratory: ko1 ko1
--- NOTE | 2023-06-07 11:34 | EDPHYS ---
Physician Documentation [facility] Name: Melida Ravi Age: 33 yrs Sex: Female : 1990 Arrival Date: 06/07/2023 Time: 09:27 Bed 14 Private MD: ED Physician Donovan Rueda HPI: 06/06 10:06 This 33 yrs old Black Female presents to ER via Ambulatory with complaints of Flu ms3 Symptoms. 10:06 33-year-old female with past medical history of anemia, asthma, kidney stones, seizures ms3 presents to the emergency department for cough, congestion, decreased appetite, vomiting x 2 days. Patient states she was around her grandson who has similar symptoms. Patient endorses chills, body aches. Patient states her discomfort is an 8/10. Patient denies any alleviating or inciting factors. Historical: - Allergies: 09:58 [place]; ap3 - Home Meds: 11:48 Albuterol Inhl [Active]; ko1 - PMHx: 09:58 Anemia; Asthma; Kidney stone; Seizures; ap3 - PSHx: 09:58 kidney stone SX; kidney removal (kidney stone SX); ap3 - Immunization history:: Adult Immunizations up to date. - Infectious Disease History:: Denies. - Social history:: Smoking status: Patient denies any tobacco usage or history of. ROS: 10:06 Abdomen/GI: Negative for abdominal pain, nausea, vomiting, diarrhea, and constipation, ms3 MS/Extremity: Negative for injury and deformity, Skin: Negative for injury, rash, and discoloration, 10:06 Constitutional: Positive for body aches, chills, 10:06 Respiratory: Positive for cough, 10:06 Abdomen/GI: Positive for nausea and vomiting, Exam: 10:06 Constitutional: This is a well developed, well nourished patient who is awake, alert, ms3 and in no acute distress. Head/Face: Normocephalic, atraumatic. Chest/axilla: Normal chest wall appearance and motion. Nontender with no deformity. Cardiovascular: Regular rate and rhythm with a normal S1 and S2. No gallops, murmurs, or rubs. Normal PMI, no JVD. No pulse deficits. Respiratory: Lungs have equal breath sounds bilaterally, clear to auscultation and percussion. No rales, rhonchi or wheezes noted. No increased work of breathing, no retractions or nasal flaring. Abdomen/GI: Soft, non-tender, with normal bowel sounds. No distension or tympany. No guarding or rebound. No evidence of tenderness throughout. Skin: Warm, dry with normal turgor. Normal color with no rashes, no lesions, and no evidence of cellulitis. MS/ Extremity: Pulses equal, no cyanosis. Neurovascular intact. Full, normal range of motion. Vital Signs: 09:57 BP 118 / 84; Pulse 84; Resp 18; Temp 98.5; Pulse Ox 100% ; ap3 11:44 BP 114 / 78; Pulse 78; Resp 15; Pulse Ox 99% ; ko1 MDM: 09:49 Patient medically screened. ms3 10:06 Differential diagnosis: flu, URI, COVID versus pneumonia. ms3 14:14 Antibiotic administration: Not indicated, the patient does not have an appreciated ms3 infiltrate. Data reviewed: vital signs, nurses notes, lab test result(s), radiologic studies, and as a result, I will discharge patient. I considered the following discharge prescriptions or medication management in the emergency department Medications were administered in the Emergency Department. See MAR. Independent interpretation of the following test(s) in the Emergency Department X-Ray: My interpretation is Chest x-ray image reviewed by me does not reveal pneumonia. Counseling: I had a detailed discussion with the patient and/or guardian regarding the historical points, exam findings, and any diagnostic results supporting the discharge/admit diagnosis, lab results, radiology results, the need for outpatient follow up, to return to the emergency department if symptoms worsen or persist or if there are any questions or concerns that arise at home. Special discussion: I discussed with the patient/guardian in detail that at this point there is no indication for admission to the hospital. It is understood, however, that if the symptoms persist or worsen the patient needs to return immediately for re-evaluation. ED course: Discussed labs and chest x-ray report with patient. Patient to follow-up with primary care physician in 2 to 3 days. Patient understands and agrees with plan. All questions were answered. Return cautions discussed include worsening symptoms, or any other concerns. On reevaluation patient is alert and oriented x 4, no apparent distress, nontoxic-appearing, ambulatory in the emergency department. 06/06 10:01 Order name: Strep ap3 06/06 09:49 Order name: Flu; Complete Time: 11:15 ms3 06/06 09:49 Order name: SARS RAPID; Complete Time: 11:15 ms3 06/06 10:28 Order name: Throat Culture EDMS 06/06 09:49 Order name: Chest Pa And Lat (2 Views) XRAY; Complete Time: 11:15 ms3 Administered Medications: 10:45 Drug: Ondansetron PO 4 mg PO once Route: PO; ko1 11:15 Follow up: Response: No adverse reaction; Nausea is decreased ko1 10:46 Drug: Acetaminophen PO 1000 mg PO once Route: PO; ko1 11:15 Follow up: Response: No adverse reaction; Pain is decreased ko1 Disposition Summary: 06/07/23 11:33 Discharge Ordered Notes: Location: Home ms3 Condition: Stable ms3 Diagnosis - Acute upper respiratory infection, unspecified ms3 Followup: ms3 - With: Dillan Moore DO - When: 2 - 3 days - Reason: Recheck today's complaints Discharge Instructions: - Discharge Summary Sheet ms3 - Upper Respiratory Infection, Adult ms3 Forms: - Medication Reconciliation Form ms3 - Antibiotic Education ms3 - Prescription Opioid Use ms3 - Patient Portal Instructions ms3 - Leadership Thank You Letter ms3 Prescriptions: - benzonatate 200 mg Oral capsule - take 1 capsule ORAL route 3 times per day as needed; 20 capsule; Refills: 0, ms3 Product Selection Permitted Signatures: Dispatcher [employer] EDMS Mayra Kent RN RN ap3 Donovan Rueda DO DO ms3 Odalys Mcghee RN RN ko1 Corrections: (The following items were deleted from the chart) 09:50 09:50 Influenza Screen (A \T\ B)+BA.LAB.BRZ ordered. EDMS EDMS 09:50 09:50 SARS-COV-2 Antigen Rapid+I.LAB.BRZ ordered. EDMS EDMS 09:50 09:50 Chest Pa And Lat (2 Views)+RAD.RAD.BRZ ordered. EDMS EDMS
[2023-06-07 12:22] VITALS: BP 114/78; TEMP 98.5; O2SAT 99
== END 2023-06-07 11:49 | disposition home or self-care (01) ==
LOC: ER 09:27
DX: J06.9 Acute upper respiratory infection, unspecified (principal); Z11.52 Encounter for screening for COVID-19
CPT/HCPCS: 36415; 71046; 87070; 87081; 87804; 87811; Q0162

== ENCOUNTER 2023-12-12 09:27 | Emergency (ER) | payer SELFPAY ==
[2023-12-12] MEDS ORDERED: ACETAMINOPHEN 500 MG TAB ONE (10:15)
--- NOTE | 2023-12-12 10:27 | RAD REPORT ---
EXAMINATION: TWO VIEW CHEST XR CLINICAL INDICATION: CONGESTION TECHNIQUE: 2 views of the chest was performed. COMPARISON: 06/07/2023 FINDINGS: There is a small vague potentially cavitary nodule in the left apex. Elsewhere, the lungs appear yudy r. The heart is normal in size. No displaced fractures evident. IMPRESSION: No acute intrathoracic abnormality. Small vague potential cavitary nodule in the left upper lobe late rally noted. Recommend follow-up CT chest assessment, which can be performed on a nonemergent basis.
[2023-12-12 10:32] LABS: Specific Gravity 1.028 (1.005-1.030)
[2023-12-12 10:50] LABS: SARS-CoV-2 Antigen CONTROL BLUE LINE VIS/BG OK; SARS-CoV-2 Antigen Rapid Res Negative (Negative)
--- NOTE | 2023-12-12 12:09 | ER ---
Nurse's Notes [facility] Name: Melida Ravi Age: 33 yrs Sex: Female : 1990 Arrival Date: 12/12/2023 Time: 09:27 Bed 11 Private MD: Diagnosis: Acute upper respiratory infection, unspecified;Incidental CXR cavitary lesion Presentation: 12/11 09:34 Chief complaint: Patient states: cough, runny nose, sore throat X 2 days , no fever. iw Coronavirus screen: Client presents with at least one sign or symptom that may indicate coronavirus-19. Ebola Screen: No symptoms or risks identified at this time. Initial Sepsis Screen: Does the patient meet any 2 criteria? No. Patient's initial sepsis screen is negative. Does the patient have a suspected source of infection? No. Patient's initial sepsis screen is negative. Risk Assessment: Do you want to hurt yourself or someone else? Patient reports no desire to harm self or others. Onset of symptoms was December 10, 2023. 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 - Infectious Disease History:: Denies. - Social history:: Smoking status: Patient reports the use of cigarette tobacco products, 4-5 cigarettes/day. Screenin:30 [facility] ED Fall Risk Assessment (Adult) History of falling in the last 3 months, tl4 including since admission No falls in past 3 months (0 pts) Confusion or Disorientation No (0 pts) Intoxicated or Sedated No (0 pts) Impaired Gait No (0 pts) Mobility Assist Device Used No (0 pt) Altered Elimination No (0 pt) Score/Fall Risk Level 0 - 2 = Low Risk Oriented to surroundings, Maintained a safe environment, Educated pt \T\ family on fall prevention, incl call for assistance when getting out of bed, Assessed \T\ reinforced patient's understanding of fall precautions. Abuse screen: Denies threats or abuse. Denies injuries from another. Nutritional screening: No deficits noted. Tuberculosis screening: No symptoms or risk factors identified. Assessment: 12:12 General: Appears in no apparent distress. Behavior is calm, cooperative. Pain: tl4 Complains of pain in throat. Neuro: Level of Consciousness is awake, alert, obeys commands, Oriented to person, place, time, situation. Cardiovascular: Denies chest pain, diaphoresis, fatigue, lightheadedness, nausea, palpitations, shortness of breath, syncope, vomiting, Capillary refill < 3 seconds Patient's skin is warm and dry. Respiratory: Airway is patent Respiratory effort is even, unlabored, Respiratory pattern is regular, symmetrical, Breath sounds are clear bilaterally. Denies cough. GI: No signs and/or symptoms were reported involving the gastrointestinal system. : No signs and/or symptoms were reported regarding the genitourinary system. EENT: Reports nasal congestion. Derm: No signs and/or symptoms reported regarding the dermatologic system. Musculoskeletal: No signs and/or symptoms reported regarding the musculoskeletal system. Vital Signs: 09:34 BP 126 / 87; Pulse 90; Resp 18; Pulse Ox 100% on R/A; iw 12:12 BP 121 / 77; Pulse 76; Resp 18; Temp 98.3(O); Pulse Ox 100% on R/A; tl4 ED Course: 09:30 Patient arrived in ED. mr 09:32 Donovan Rueda DO is Attending Physician. ms3 09:36 Triage completed. iw 09:36 Arm band placed on. iw 10:05 Chest Pa And Lat (2 Views) XRAY In Process Unspecified. EDMS 10:24 SARS RAPID Sent. cm10 10:24 Flu Sent. cm10 10:24 Test, Urine Sent. cm10 10:24 COVID swab sent to lab. Flu and/or RSV swab sent to lab. cm10 11:39 Luz Bellamy, RN is Primary Nurse. iw 12:07 Dillan Moore DO is Referral Physician. ms3 12:14 Patient has correct armband on for positive identification. Bed in low position. Call tl4 light in reach. Side rails up X 1. Adult w/ patient. Provided Education on: ed process, call nunez. Client placed on continuous cardiac and pulse oximetry monitoring. NIBP monitoring applied. Door closed. Noise minimized. Lights dimmed. Moved to private room. 12:31 No provider procedures requiring assistance completed. Patient did not have IV access tl4 during this emergency room visit. Administered Medications: 10:23 Drug: Acetaminophen PO 1000 mg PO once Route: PO; cm10 12:32 Follow up: Response: No adverse reaction tl4 Medication: 12:30 VIS not applicable for this client. tl4 Outcome: 12:08 Discharge ordered by . ms3 12:26 Discharged to home ambulatory, with family, tl4 12:26 Condition: stable 12:26 Discharge instructions given to patient, Instructed on discharge instructions, follow up and referral plans. medication usage, Demonstrated understanding of instructions, follow-up care, medications, Prescriptions given X 2, 12:32 Patient left the ED. tl4 Signatures: Dispatcher [employer] EDMS Sarah Mcdermott, Reg Reg mr Luz Bellamy, RN RN iw Donovan Rueda DO DO ms3 Anne Christine RN RN cm10 Bro Schroeder RN RN tl4
--- NOTE | 2023-12-12 12:09 | EDPHYS ---
Physician Documentation [facility] Name: Melida Ravi Age: 33 yrs Sex: Female : 1990 Arrival Date: 12/12/2023 Time: 09:27 Bed 11 Private MD: ED Physician Donovan Rueda HPI: 12/11 09:55 This 33 yrs old Black Female presents to ER via Ambulatory with complaints of Cough, ms3 Congestion, Sore Throat. 09:55 33-year-old female with past medical history of anemia, asthma, kidney stone, seizures ms3 presents to the emergency department for congestion, sore throat, cough productive of phlegm that began 2 days prior to arrival. Patient denies fevers or chills. She denies any inciting factors. Patient notes she has to sleep at night sitting up to prevent her from coughing. 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 - Infectious Disease History:: Denies. - Social history:: Smoking status: Patient reports the use of cigarette tobacco products, 4-5 cigarettes/day. ROS: 09:55 Constitutional: Negative for fever, and chills. Neck: Negative for injury, pain, and ms3 swelling, Cardiovascular: Negative for chest pain, and palpitations. Respiratory: Negative for shortness of breath, cough, wheezing, and pleuritic chest pain, 09:55 MS/Extremity: Negative for injury and deformity, 09:55 ENT: Positive for nasal discharge, sinus congestion, sore throat, Exam: 09:55 Constitutional: This is a well developed, well nourished patient who is awake, alert, ms3 and in no acute distress. 09:55 ENT: Posterior pharynx: Tonsils: are normal in appearance, Uvula: normal, swelling, is not appreciated, erythema, that is mild, exudate, is not appreciated, peritonsillar mass, is not appreciated, 09:55 Cardiovascular: Regular rate and rhythm with a normal S1 and S2. No gallops, murmurs, ms3 or rubs. Normal PMI, no JVD. No pulse deficits. Respiratory: Lungs have equal breath sounds bilaterally, clear to auscultation and percussion. No rales, rhonchi or wheezes noted. No increased work of breathing, no retractions or nasal flaring. Skin: Warm, dry with normal turgor. Normal color with no rashes, no lesions, and no evidence of cellulitis. Vital Signs: 09:34 BP 126 / 87; Pulse 90; Resp 18; Pulse Ox 100% on R/A; iw 12:12 BP 121 / 77; Pulse 76; Resp 18; Temp 98.3(O); Pulse Ox 100% on R/A; tl4 MDM: 09:55 Differential Diagnosis: Bronchitis Influenza Upper Respiratory Infection Pneumonia. ms3 10:02 Medical Screening Exam initiated ms3 18:47 Data reviewed: vital signs, nurses notes, lab test result(s), radiologic studies, and ms3 as a result, I will discharge patient. I considered the following discharge prescriptions or medication management in the emergency department Medications were administered in the Emergency Department. See MAR. Counseling: I had a detailed discussion with the patient and/or guardian regarding the historical points, exam findings, and any diagnostic results supporting the discharge/admit diagnosis, lab results, radiology results, the need for outpatient follow up, to return to the emergency department if symptoms worsen or persist or if there are any questions or concerns that arise at home. Special discussion: I discussed with the patient/guardian in detail that at this point there is no indication for admission to the hospital. It is understood, however, that if the symptoms persist or worsen the patient needs to return immediately for re-evaluation. ED course: Discussed labs and imaging with patient. Patient to follow-up with her primary care physician in 2 to 3 days. Patient understands and agrees with plan. All questions were answered. Return precautions discussed include worsening symptoms, or any other concerns. On reevaluation patient is alert and oriented x 4, no apparent distress, nontoxic-appearing, speaking full sentences, ambulatory in the emergency department. 12/11 09:52 Order name: Test, Urine; Complete Time: 11:53 ms3 12/11 09:52 Order name: Flu; Complete Time: 11:54 ms3 12/11 09:52 Order name: SARS RAPID; Complete Time: 11:54 ms3 12/11 09:52 Order name: Chest Pa And Lat (2 Views) XRAY; Complete Time: 10:30 ms3 Administered Medications: 10:23 Drug: Acetaminophen PO 1000 mg PO once Route: PO; cm10 12:32 Follow up: Response: No adverse reaction tl4 Disposition Summary: 12/12/23 12:08 Discharge Ordered Notes: Location: Home ms3 Condition: Stable ms3 Diagnosis - Acute upper respiratory infection, unspecified ms3 - Incidental CXR cavitary lesion ms3 Followup: ms3 - With: Dillan Moore DO - When: 2 - 3 days - Reason: Re-evaluation by your physician Discharge Instructions: - Discharge Summary Sheet ms3 - Upper Respiratory Infection, Adult, [id number] ms3 - Incidental Abnormal Radiological Finding ms3 Forms: - Medication Reconciliation Form ms3 - Antibiotic Education ms3 - Prescription Opioid Use ms3 - Patient Portal Instructions ms3 - Leadership Thank You Letter ms3 - Work release form tl4 Prescriptions: - Claritin 10 mg Oral Tablet - take 1 tablet ORAL route once daily As needed; 30 tablet; Refills: 0, Product ms3 Selection Permitted - benzonatate 200 mg Oral capsule - take 1 capsule ORAL route 3 times per day as needed; 20 capsule; Refills: 0, ms3 Product Selection Permitted Signatures: Dispatcher [employer] Luz Alfredo RN RN iw Sims, Marcus, DO DO ms3 Anne Chritsine RN RN cm10 Bro Schroeder RN RN tl4
[2023-12-12 13:01] VITALS: O2SAT 100
[2023-12-12 13:07] VITALS: BP 121/77; TEMP 98.3
== END 2023-12-12 12:32 | disposition home or self-care (01) ==
LOC: ER 09:27
DX: J06.9 Acute upper respiratory infection, unspecified (principal); J98.9 Respiratory disorder, unspecified; Z11.52 Encounter for screening for COVID-19
CPT/HCPCS: 36415; 71046; 81025; 87804; 87811; 99284